=== PATIENT | male | born 1930 | race Caucasian/White ===

== ENCOUNTER 2017-11-19 21:32 | Inpatient (IN) | payer MEDICARE, BC ==
[~2017-11-19] VITALS: Ht 154.9 cm; Wt 52.6 kg
[~2017-11-19 21:32] MED LIST: ALEN70TA45; ASPI-1169 PO; CARB1TAB21; CARV12.5 PO; CLOP75TA15 PO
--- NOTE | 2017-11-19 21:32 | NUR ---
BB SELF; COUGH CONGESTION, "LOW URINE OUTPUT" VSS NAD A/OX4 ABLE TO MAKE NEEDS KNOWN. WILL CONTINUE TO MONITOR FOR ANY CHANGES DURING THE SHIFT.
[2017-11-19 22:10] LABS: HEMATOCRIT 39 % (39-51); LYMPHOCYTES # (AUTO) 0.6 /CMM (0.8-4.8); LYMPHOCYTES % (AUTO) 7.2 % (20.0-44.0); MEAN CORPUSCULAR HGB CONC 33 g/dl (31.0-36.0); MEAN CORPUSCULAR VOLUME 92 fL (80-96); MONOCYTES # (AUTO) 0.5 /CMM (0.1-1.30); MONOCYTES % (AUTO) 5.7 % (2.0-12.0); NEUTROPHILS # (AUTO) 7.7 /CMM (1.8-8.9); NEUTROPHILS % (AUTO) 86.1 % (43.0-81.0); PLATELET COUNT (AUTO) 320 /CMM (150-450); RDW COEFFICIENT OF VARIATION 13.2 (11.5-15.0); RED BLOOD CELL COUNT(AUTO) 4.26 MIL/uL (4.5-6.0)
[2017-11-19 22:22] LABS: CALCIUM, SERUM 8.6 mg/dL (8.5-10.1); CARBON DIOXIDE 26 mmol/L (21-32); CHLORIDE 98 mmol/L (98-107); CREATININE 0.8 mg/dL (0.6-1.3); GLUCOSE 159 mg/dL (74-106); POTASSIUM 4.1 mmol/L (3.5-5.1); SODIUM SERUM 130 mmol/L (136-145); UREA NITROGEN, BLOOD 19 mg/dL (7-18)
[2017-11-19 22:28] LABS: INR 1.1 (0.87-1.13); TROPONIN I 0.028 ng/mL (0.00-0.056)
[2017-11-19] MEDS ORDERED: ALBUTEROL FS 2.5 MG/0.5 ML VIAL.NEB NEB ONE (22:30)
[2017-11-19 22:33] LABS: ALANINE AMINOTRANSFERASE 55 U/L (12-78); ALBUMIN 3.2 g/dL (3.4-5.0); ALKALINE PHOSPHATASE 157 U/L (46-116); ASPARTATE AMINOTRANSFERASE 38 U/L (15-37); B-TYPE NATRIURETIC PEPTIDE 7335 PG/ML (0-125); BILIRUBIN,DIRECT 0.1 mg/dL (0.0-0.2); BILIRUBIN,TOTAL 0.5 mg/dL (0.2-1.0); TOTAL PROTEIN, SERUM 7.7 g/dL (6.4-8.2)
[2017-11-19] MEDS ORDERED: ALBUTEROL FS 2.5 MG/0.5 ML VIAL.NEB ONE (22:36)
[2017-11-19] MEDS ORDERED: METO50TA16 PO (22:47)
[2017-11-19] MEDS ORDERED: DIGO125T PO (22:47)
[2017-11-19] MEDS ORDERED: ATOR40TA PO ×2 (22:47→22:52)
[2017-11-19] MEDS ORDERED: LIDOCAINE 2% JEL UROJET 10 ML MM ONE ×2 (22:57→23:00)
--- NOTE | 2017-11-19 23:30 | NUR ---
ATTEMPTED 2 CATHETER INSERTIONS WITH NO SUCCESS. BLADDER SCANNER SHOWED 96CC OF URINE. ER MD MATIAS MADE AWARE
[2017-11-20 00:30] VITALS: BP 151/97
[2017-11-20] MEDS ORDERED: MAG HYDROX/AL HYDROX/SIMETH 30 ML UDC PO PRN (00:30)
[2017-11-20] MEDS ORDERED: Z GUARD REMEDY 2 OZ OINT TP PRN (00:30)
[2017-11-20] MEDS ORDERED: ACETAMINOPHEN 325 MG TABLET PO PRN (00:30)
[2017-11-20] MEDS ORDERED: HYDROCODONE/APAP 5/325MG 1 EACH TABLET PO PRN (00:30)
[2017-11-20] MEDS ORDERED: ZOLPIDEM TARTRATE 5 MG TABLET PO PRN (00:30)
[2017-11-20] MEDS ORDERED: ONDANSETRON HCL/PF 4 MG/2 ML VIAL IVP PRN (00:30)
--- NOTE | 2017-11-20 01:00 | NUR ---
MARINE DIESEL TECHNICIAN NOTE: RECEIVED PATIENT FROM ER, NO ACUTE DISTRESS NOTED. BREATHING EVEN AND UNLABORED, NO SOB NOTED AT THIS TIME. IV TO RAC IN PLACE. ORIENTED PATIENT TO ROOM AND USE OF CALL LIGHT. TELE READING AFIN 90. PATIENT NOTED WITH AN EPISODE OF VFIB, HR 120 FOR ABOUT 10 SEC PER PROPERTY CUSTODIAN. NURSE IN ROOM WITH PATIENT AT THE TIME AND NO ACUTE DISTRESS NOTED. TELE READING RESUMED BACK TO AFIB. BED LOCKED AND IN LOWEST POSITION, CALL LIGHT IN REACH. WILL CONTINUE TO MONITOR.
[2017-11-20] MEDS: methylPREDNISolone SOD SUCC 40 MG/ML VIAL IV SCH ×3 (01:18→13:34)
[2017-11-20] MEDS: IPRATROPIUM NEB FS 0.5 MG/2.5 ML AMPUL.NEB NEB SCH ×6 (03:22→23:18)
[2017-11-20] MEDS: ALBUTEROL FS 2.5 MG/0.5 ML VIAL.NEB NEB SCH ×6 (03:22→23:18)
[2017-11-20 04:00] VITALS: BP 114/76
--- NOTE | 2017-11-20 04:00 | NUR ---
SURVEY DATA TECHNICIAN NOTE: PATIENT NOTED WITH HEMATURIA. WHEN IN ER THEY TRIED TO STRAIGHT CATH AND WERE UNSUCCESSFUL. PATIENT HAS HISTORY OF PROSTATE CANCER. WILL CONTINUE TO MONITOR.
--- NOTE | 2017-11-20 06:15 | NUR ---
SPEECH LANGUAGE PATHOLOGIST NOTE: PATIENT RESTING IN BED, NO ACUTE DISTRESS NOTED. BREATHING EVEN AND UNLABORED, NO SOB NOTED AT THIS TIME. IV TO RAC IN PLACE. TELE READING AFIB 80. BED LOCKED AND IN LOWEST POSITION, CALL LIGHT IN REACH. WILL ENDORSE TO DAY NURSE TO CONTINUE WITH PLAN OF CARE.
[2017-11-20 08:00] VITALS: BP 121/80
--- NOTE | 2017-11-20 08:00 | NUR ---
GRAIN COMBINER NOTES PATIENT IN BED RESTING NO SOB OR ACUTE DISTRESS NOTED. PATIENT ALERT, ORIENTED X3 FORGETFUL. PERIPHERAL IV INTACT PATENT. BED IN LOW LOCKED POSITION, CALL WITHIN REACH. WILL CONTINUE TO MONITOR.
[2017-11-20 08:24] LABS: ABG BASE EXCESS -2.9 mmol/L; ABG OXYGEN SATURATION 94.9 % (92.0-98.5); ABG PCO2 23.5 mmHg (35.0-45.0); ABG PO2 73.2 mmHg (75.0-100.0); AaDO2 98.7 mmHg; COHb 0.2 % (0.5-1.5); MetHb 0.5 % (0.0-1.5); O2Hb 94.2 % (94.0-97.0); SITE, ABG Right Radial; VENT MODE, BG 2 lpm cannula
[2017-11-20] MEDS: IV NS 0.9% 1,000 ML IV PRN (09:23)
[2017-11-20] MEDS: CLOPIDOGREL BISULFATE 75 MG TABLET PO SCH (09:24)
[2017-11-20] MEDS: METOPROLOL TARTRATE 50 MG TABLET PO SCH ×2 (09:24→21:12)
[2017-11-20] MEDS: ASPIRIN 81 MG TAB.CHEW PO SCH (09:24)
[2017-11-20] MEDS: CARBIDOPA/LEVODOPA 25/100 MG 1 UDTAB PO SCH (09:24)
[2017-11-20] MEDS: CARVEDILOL 12.5 MG TABLET PO SCH ×2 (09:25→21:12)
--- NOTE | 2017-11-20 11:00 | NUR ---
MS RN NOTES PATIENT SEEN AND EVALUATED BY RICKI PEGUERO ORDERS NOTED AND CARRIED OUT.
[2017-11-20 11:38] LABS: HEMATOCRIT 36 % (39-51); LYMPHOCYTES # (AUTO) 0.3 /CMM (0.8-4.8); LYMPHOCYTES % (AUTO) 3.2 % (20.0-44.0); MEAN CORPUSCULAR HGB CONC 33 g/dl (31.0-36.0); MEAN CORPUSCULAR VOLUME 92 fL (80-96); MONOCYTES # (AUTO) 0.1 /CMM (0.1-1.30); MONOCYTES % (AUTO) 0.6 % (2.0-12.0); NEUTROPHILS # (AUTO) 8.9 /CMM (1.8-8.9); NEUTROPHILS % (AUTO) 96.2 % (43.0-81.0); PLATELET COUNT (AUTO) 278 /CMM (150-450); RDW COEFFICIENT OF VARIATION 13.3 (11.5-15.0); RED BLOOD CELL COUNT(AUTO) 3.93 MIL/uL (4.5-6.0); WHITE BLOOD COUNT (AUTO) 9.3 K/uL (4.3-11.0)
[2017-11-20 11:45] LABS: CALCIUM, SERUM 8.3 mg/dL (8.5-10.1); CARBON DIOXIDE 22 mmol/L (21-32); CHLORIDE 100 mmol/L (98-107); GLUCOSE 237 mg/dL (74-106); POTASSIUM 4.5 mmol/L (3.5-5.1); SODIUM SERUM 132 mmol/L (136-145); UREA NITROGEN, BLOOD 18 mg/dL (7-18)
[2017-11-20] MEDS: DIGOXIN 0.125 MG TABLET PO SCH (13:35)
[2017-11-20] MEDS ORDERED: LEVOFLOXACIN (500MG) 500 MG TABLET PO ONE (15:00)
[2017-11-20 16:00] VITALS: BP 118/73
--- NOTE | 2017-11-20 17:39 | NUR ---
patient lives locally with daughter who is the primary caregiver. Patient ambulates with cane around household and walker when out in the community. DME available: cane & walker. Has good family support. Current plan is to dc back home, daughter will provide ride. Addendum: 11/20/17 at 1740 by GORDON CHAN RN Amended: Links added.
--- NOTE | 2017-11-20 19:00 | NUR ---
MS RN NOTES PATIENT IN BED RESTING NO SOB OR ACUTE DISTRESS NOTED. ALL DUE MEDICATIONS ADMINISTERED. ALL NEEDS MET. PERIPHERAL IV INTACT PATENT ON LEFT FOREARM. BED IN LOW LOCKED POSITION. CALL LIGHT WITHIN REACH. WILL ENDORSE CARE TO PM SHIFT.
--- NOTE | 2017-11-20 19:20 | NUR ---
MS/RN OPENING NOTES PT RECEIVED AWAKE, SEMI FOWLERS POSITION. ON 2L O2 VIA NC, BREATHING EVEN AND UNLABORED. NO SOB OR S/S OF RESPIRATORY DISTRESS NOTED AT THIS TIME. 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 IV TO LFA PATENT AND INTACT RUNNING IVF ORDERED. BED IN LOW/LOCKED POSITION WITH CALL LIGHT IN REACH. SIDE RAILS UPX3 AND BED ALARM ON FOR SAFETY. WALKER AT BEDSIDE. WILL CONTINUE TO MONITOR
[2017-11-20 20:00] VITALS: BP 132/79
[2017-11-20] MEDS ORDERED: ATORVASTATIN 40 MG TABLET PO SCH (22:00)
[2017-11-20] MEDS ORDERED: DIGOXIN 0.125 MG TABLET PO SCH (22:00)
[2017-11-21] MEDS: ALBUTEROL FS 2.5 MG/0.5 ML VIAL.NEB NEB SCH ×6 (03:45→23:13)
[2017-11-21] MEDS: IPRATROPIUM NEB FS 0.5 MG/2.5 ML AMPUL.NEB NEB SCH ×6 (03:45→23:13)
[2017-11-21] MEDS: IV NS 0.9% 1,000 ML IV PRN ×2 (05:20→17:57)
[2017-11-21 06:31] LABS: HEMATOCRIT 35 % (39-51); HEMOGLOBIN 11.8 g/dL (13.5-17.5); LYMPHOCYTES # (AUTO) 0.6 /CMM (0.8-4.8); LYMPHOCYTES % (AUTO) 3.9 % (20.0-44.0); MEAN CORPUSCULAR HGB CONC 34 g/dl (31.0-36.0); MEAN CORPUSCULAR VOLUME 92 fL (80-96); MONOCYTES # (AUTO) 0.8 /CMM (0.1-1.30); NEUTROPHILS # (AUTO) 14.1 /CMM (1.8-8.9); NEUTROPHILS % (AUTO) 91.1 % (43.0-81.0); PLATELET COUNT (AUTO) 312 /CMM (150-450); RDW COEFFICIENT OF VARIATION 13.1 (11.5-15.0); WHITE BLOOD COUNT (AUTO) 15.5 K/uL (4.3-11.0)
[2017-11-21 06:48] LABS: ALANINE AMINOTRANSFERASE 51 U/L (12-78); ALBUMIN 2.9 g/dL (3.4-5.0); ALKALINE PHOSPHATASE 110 U/L (46-116); ASPARTATE AMINOTRANSFERASE 28 U/L (15-37); BILIRUBIN,TOTAL 0.7 mg/dL (0.2-1.0); CALCIUM, SERUM 8.3 mg/dL (8.5-10.1); CARBON DIOXIDE 23 mmol/L (21-32); CHLORIDE 99 mmol/L (98-107); CREATININE 0.9 mg/dL (0.6-1.3); GLUCOSE 135 mg/dL (74-106); PHOSPHORUS 3.4 mg/dL (2.5-4.9); POTASSIUM 4.4 mmol/L (3.5-5.1); SODIUM SERUM 132 mmol/L (136-145); TOTAL PROTEIN, SERUM 6.9 g/dL (6.4-8.2); TROPONIN I 0.029 ng/mL (0.00-0.056); UREA NITROGEN, BLOOD 25 mg/dL (7-18)
--- NOTE | 2017-11-21 06:50 | NUR ---
MS/RN CLOSING NOTES PT RESTING COMFORTABLY IN BED. FORGETFUL AND HARD OF HEARING. ON/OFF 2L O2 VIA NC, BREATHING EVEN AND UNLABORED. SOB ON EXERTION. REORIENTED PRN, EDUCATED ABOUT OXYGEN USE. IV TO LEFT FA PATENT AND INTACT RUNNING IVF ORDERED. KEPT PT COMFORTABLE DURING SHIFT. ALL NEEDS MET. BED REMAINS IN LOW/LOCKED POSITION WITH CALL LIGHT IN REACH. BED ALARM ON FOR SAFETY AND BED RAILS UPX2. WILL ENDORSE TO DAY SHIFT RN CHARISSA.
--- NOTE | 2017-11-21 07:15 | NUR ---
MS RN OPENING NOTE RECEIVED BEDSIDE SBAR REPORT ON THE PATIENT. PATIENT IS CONFUSED AND FORGETFUL. PATIENT IS AWAKE AND RESPONSIVE IN BED. HARD OF HEARING. BED IS LOCKED, IN LOWEST POSITION, SIDE RAILS UP X3, BED ALARM IS ON. CALL LIGHT WITHIN REACH. [id number] THE PATIENT TO USE THE CALL LIGHT TO CALL FOR ASSISTANCE. ALL NEEDS ARE MET. DENIES PAIN/DISCOMFORT AT THIS TIME. SPO2 92 % ON 2L. WILL CONTINUE TO ASSESS/MONITOR THROUGHOUT THE SHIFT.
[2017-11-21 07:37] LABS: CHOLESTEROL 111 mg/dL (<200); HDL CHOLESTEROL 30 mg/dL (40-60); LDL 71 mg/dL (0-99); TRIGLYCERIDES 91 mg/dL (30-150)
[2017-11-21 08:00] VITALS: BP_SYST 153; BP_SYST 160; BP_DIAS 100; BP_DIAS 96
[2017-11-21] MEDS: CARVEDILOL 12.5 MG TABLET PO SCH ×2 (08:00→21:24)
[2017-11-21] MEDS: ASPIRIN 81 MG TAB.CHEW PO SCH (08:00)
[2017-11-21] MEDS: METOPROLOL TARTRATE 50 MG TABLET PO SCH ×2 (08:00→21:24)
--- NOTE | 2017-11-21 08:02 | NUR ---
PATIENT FORGETS OWN LIMITATIONS AND GETS OUT OF BED TO URINATE WITHOUT CALLING THE NURSE. CHARGE NURSE ANDREINA NOTIFIED. ORDER OBTAINED FROM Ever PEGUERO NP FOR 1:1SITTER.
[2017-11-21] MEDS: CARBIDOPA/LEVODOPA 25/100 MG 1 UDTAB PO SCH (08:07)
[2017-11-21] MEDS: methylPREDNISolone SOD SUCC 40 MG/ML VIAL IV SCH (08:07)
[2017-11-21] MEDS: CLOPIDOGREL BISULFATE 75 MG TABLET PO SCH (08:08)
[2017-11-21] MEDS: DIGOXIN 0.125 MG TABLET PO SCH (13:39)
[2017-11-21] MEDS: LEVOFLOXACIN (250MG) 250 MG TABLET PO SCH (15:37)
[2017-11-21 16:00] VITALS: BP 158/75
--- NOTE | 2017-11-21 17:21 | NUR ---
patient presents with elevated bp of 160/75. Freddy Méndez informed. Received telephone order for Hydralazine PO 10 mg one time now and decrease IV fluids to 50ml/hr. Read back and verified. Will follow orders as received.
[2017-11-21] MEDS ORDERED: hydrALAZINE HCL 10 MG TABLET PO ONE (17:30)
--- NOTE | 2017-11-21 18:50 | NUR ---
MS RN CLOSING NOTE PATIENT IS AWAKE AND ALERT, READING A BOOK IN THE BED. CONFUSED AND FORGETFUL. SITTER AT THE BEDSIDE. BED IS LOCKED, IN LOWEST POSITION, SIDE RAILS UP X3, BED ALARM IS ON. CALL LIGHT WITHIN REACH. EDUCATED THE PATIENT TO USE THE CALL LIGHT TO CALL FOR ASSISTANCE. ALL NEEDS ARE MET. DENIES PAIN/DISCOMFORT AT THIS TIME. SPO2 93 % ON 2L. ALL NEEDS ARE MET. NURSING CARE RENDERED. ALL DUE MEDICATIONS ADMINISTERED. WILL ENDORSE TO THE OYSTER OPENER NURSE FOR CHARISSA.
--- NOTE | 2017-11-21 19:20 | NUR ---
MS RN OPENING NOTES RECEIVED PT SITTING UPRIGHT IN BED WITH SITTER AT BEDSIDE. AWAKE AND RESPONSIVE. AFEBRILE, RESPIRATIONS ARE EVEN AND UNLABORED. NOT IN ANY ACUTE DISTRESS NOTED. PT DENIES ANY PAIN OR DISCOMFORT, N/V, SOB. IV SITE INTACT, NO INFILTRATION NOTED. DRESSING KEPT CLEAN AND DRY. SAFETY MEASURES ARE IN PLACE. WILL CONTINUE TO MONITOR THROUGHOUT SHIFT FOR CONTINUITY OF CARE.
--- NOTE | 2017-11-21 19:40 | NUR ---
RN INITIAL NOTES: RECEIVED REPORT FROM JENI KEMP, PT IN BED, AWAKE, A/O X2-3 HARD OF HEARING, BETTER TO USE PEN AND PAPER TO COMMUNICATE PT REALLY HAD DIFFICULTY HEARING. DENIES ANY PAIN OR DISCOMFORT AT THIS TIME, ON 2L NC, SPO2 90%-92%. IV ACCESS NOTED TO BE BLEEDING AND INFILTRATED, REMOVED, AND APPLIED PRESSURED DRESSING. NEW IV ACCESS REINSERTED ON RIGHT HAND G24, PT REALLY HARD STICK, VEIN KEPT BLOWING, CONNECTED BACK TO NS AT 50ML/HR. SITTER AT BED SIDE. URINAL WITHIN REACH. SAFETY PRECAUTIONS FOR FALL INITIATED, CALL LIGHT IN REACH, WILL CONTINUE MONITORING PT Addendum: 11/22/17 at 7277 by JORDAN LUNDBERG RN DISREGARD ABOVE DOCUMENTATION: WRONG ENTRY OF DATE
[2017-11-21 20:00] VITALS: BP 148/93
--- NOTE | 2017-11-21 23:16 | NUR ---
HHN TREATMENT PUT ON HOLD PER RN WHILE PATIENT IS ASLEEP. NO DISTRESS/SOB NOTED. Addendum: 11/21/17 at 2317 by BERTRAND VELAZQUEZ RT Amended: Links added.
[2017-11-22] MEDS: ALBUTEROL FS 2.5 MG/0.5 ML VIAL.NEB NEB SCH ×6 (03:30→23:36)
[2017-11-22] MEDS: IPRATROPIUM NEB FS 0.5 MG/2.5 ML AMPUL.NEB NEB SCH ×6 (03:30→23:36)
--- NOTE | 2017-11-22 03:49 | NUR ---
HHN TREATMENT PUT ON HOLD PER RN WHILE PATIENT IS ASLEEP. NO DISTRESS/SOB NOTED. Addendum: 11/22/17 at 0349 by BERTRAND VELAZQUEZ RT Amended: Links added.
--- NOTE | 2017-11-22 06:50 | NUR ---
MS RN NOTES NEW PERIPHERAL INSERTED TO RIGHT WRIST G 22. DRESSING KEPT CLEAN AND DRY. TOLERATED PROCEDURE WELL.
--- NOTE | 2017-11-22 06:58 | NUR ---
MS RN CLOSING NOTES ALL DUE MEDS GIVEN, NEEDS MET AND RENDERED. AWAKE AND RESPONSIVE. AFEBRILE, RESPIRATIONS ARE EVEN AND UNLABORED, NOT IN ANY ACUTE DISTRESS NOTED. DENIES ANY SOB, CHEST PAIN, N/V. IV SITE INTACT, DRESSING KEPT CLEAN AND DRY. SAFETY MEASURES ARE IN PLACE. WILL ENDORSE TO NEXT SHIFT FOR CONTINUITY OF CARE.
--- NOTE | 2017-11-22 08:00 | NUR ---
RN NOTES RECEIVED PATIENT IN THE BED RESTING. PATIENT AROUSE WHEN CALLED NAME OR TOUCHED. PATIENT HAS NO RESPIRATORY DISTRESS. PATIENT ON ALUTIIQ. ON O2 2L NC, NO SOB, NO ACUTE RESPIRATORY DISTRESS. IV ON LEFT FOREARM NS AT 50 ML/HR INTACT. SCHEDULED MEDICATION ADMINISTERED, V/S STABLE. 1:1 SITTER NEX TO THE BED FOR SAFETY. NEEDS ATTENDED AND ANTICIPATED. CALL LIGHT WITHIN TO REACH. SAFETY PRECAUTION MAINTAINED ALL THE TIME.
[2017-11-22] MEDS: CARBIDOPA/LEVODOPA 25/100 MG 1 UDTAB PO SCH (08:49)
[2017-11-22] MEDS: METOPROLOL TARTRATE 50 MG TABLET PO SCH ×2 (08:50→22:03)
[2017-11-22] MEDS: methylPREDNISolone SOD SUCC 40 MG/ML VIAL IV SCH (08:50)
[2017-11-22] MEDS: CLOPIDOGREL BISULFATE 75 MG TABLET PO SCH (08:50)
[2017-11-22] MEDS: ASPIRIN 81 MG TAB.CHEW PO SCH (08:50)
[2017-11-22] MEDS: CARVEDILOL 12.5 MG TABLET PO SCH ×2 (09:07→20:52)
[2017-11-22 11:10] LABS: EOSINOPHILS % (AUTO) 0.2 % (0.0-6.0); HEMATOCRIT 35 % (39-51); HEMOGLOBIN 11.6 g/dL (13.5-17.5); LYMPHOCYTES # (AUTO) 0.4 /CMM (0.8-4.8); LYMPHOCYTES % (AUTO) 4.1 % (20.0-44.0); MEAN CORPUSCULAR HGB CONC 33 g/dl (31.0-36.0); MEAN CORPUSCULAR VOLUME 92 fL (80-96); MONOCYTES # (AUTO) 0.6 /CMM (0.1-1.30); MONOCYTES % (AUTO) 5.6 % (2.0-12.0); NEUTROPHILS # (AUTO) 9.8 /CMM (1.8-8.9); NEUTROPHILS % (AUTO) 90.1 % (43.0-81.0); PLATELET COUNT (AUTO) 323 /CMM (150-450); RDW COEFFICIENT OF VARIATION 13.8 (11.5-15.0); WHITE BLOOD COUNT (AUTO) 10.9 K/uL (4.3-11.0)
[2017-11-22 11:16] LABS: CALCIUM, SERUM 8.3 mg/dL (8.5-10.1); CARBON DIOXIDE 23 mmol/L (21-32); CHLORIDE 101 mmol/L (98-107); CREATININE 0.9 mg/dL (0.6-1.3); GLUCOSE 109 mg/dL (74-106); POTASSIUM 4.5 mmol/L (3.5-5.1); SODIUM SERUM 132 mmol/L (136-145); UREA NITROGEN, BLOOD 30 mg/dL (7-18)
--- NOTE | 2017-11-22 11:20 | NUR ---
carlita notes PATIENT GET DISATURATED 78/ TO 81 AFTER ROVED OXYGEN. APPLIED O2 BACK. RICKI ROMERO NOTIFIED. ORDER TAKEN AND CARRIED OUT. Addendum: 11/22/17 at 1217 by DENNY CLEEVLAND RN RICKI RUBI NOTIFIED.
--- NOTE | 2017-11-22 12:10 | NUR ---
RN NOTES PATIENT GET CHEST X-RAY AT THIS TIME, ALSO SEEN PHENOLOGIST DR ELLIS. PATIENT STABLE NO SOB, NO ACUTE RESPIRATORY DISTRESS AT THIS TIME. DAUGHTER NEXT TO THE BED. O2 -95 ON 2LNC, CALL LIGHT WITHIN TO THE PATIENT. 1:1 SITTER NEXT TO THE BED FOR SAFETY. CONTINUED MONITORING.
[2017-11-22] MEDS: DIGOXIN 0.125 MG TABLET PO SCH (13:00)
--- NOTE | 2017-11-22 14:06 | NUR ---
RN NOTES HELD DIGOXIN AT THIS TIME BECAUSE OF LOW PULSE 50 MINS. CONTINUED MONITORING.
[2017-11-22] MEDS: LEVOFLOXACIN (250MG) 250 MG TABLET PO SCH (15:58)
[2017-11-22 16:00] VITALS: BP 145/71
--- NOTE | 2017-11-22 18:30 | NUR ---
RN NOTES PATIENT ON O2 2L NC, NO SOB, NO RESPIRATORY DISTRESS, SCHEDULED MEDICATION ADMINISTERED, V/S STABLE, PATIENT USING URINAL. CALL LIGHT WITHIN TO REACH. 1:1 SITTER NEXT TO THE BED FOR SAFETY. CALL LIGHT WITHIN TO REACH. ENDORSED ONCOMING NURSE FOR CHARISSA.
--- NOTE | 2017-11-22 19:40 | NUR ---
RN INITIAL NOTES: RECEIVED REPORT FROM JENI KEMP, PT IN BED, AWAKE, A/O X2-3 HARD OF HEARING, BETTER TO USE PEN AND PAPER TO COMMUNICATE PT REALLY HAD DIFFICULTY HEARING. DENIES ANY PAIN OR DISCOMFORT AT THIS TIME, ON 2L NC, SPO2 90%-92%. IV ACCESS NOTED TO BE BLEEDING AND INFILTRATED, REMOVED, AND APPLIED PRESSURED DRESSING. NEW IV ACCESS REINSERTED ON RIGHT HAND G24, PT REALLY HARD STICK, VEIN KEPT BLOWING, CONNECTED BACK TO NS AT 50ML/HR. SITTER AT BED SIDE. URINAL WITHIN REACH. SAFETY PRECAUTIONS FOR FALL INITIATED, CALL LIGHT IN REACH, WILL CONTINUE MONITORING PT
[2017-11-22 20:00] VITALS: BP 150/76
--- NOTE | 2017-11-22 21:30 | NUR ---
RN NOTES: OFFERED MILK, AND SNACK, CONSUMED 100%.
[2017-11-22 22:03] VITALS: BP 132/73
--- NOTE | 2017-11-22 22:49 | NUR ---
RN INITIAL NOTES: RECEIVED REPORT FROM JENI KEMP, PT IN BED, AWAKE, A/O X2-3 HARD OF HEARING, BETTER TO USE PEN AND PAPER TO COMMUNICATE PT REALLY HAD DIFFICULTY HEARING. DENIES ANY PAIN OR DISCOMFORT AT THIS TIME, ON 2L NC, SPO2 90%-92%. IV ACCESS NOTED TO BE BLEEDING AND INFILTRATED, REMOVED, AND APPLIED PRESSURED DRESSING. NEW IV ACCESS REINSERTED ON RIGHT HAND G24, PT REALLY HARD STICK, VEIN KEPT BLOWING, CONNECTED BACK TO NS AT 50ML/HR. SITTER AT BED SIDE. URINAL WITHIN REACH. SAFETY PRECAUTIONS FOR FALL INITIATED, CALL LIGHT IN REACH, WILL CONTINUE MONITORING PT Addendum: 11/22/17 at 2250 by JORDAN LUNDBERG RN DISREGARD ABOVE DOCUMENTATION, WRONG TIME:
--- NOTE | 2017-11-23 02:34 | NUR ---
RN NOTES: PT PULLED OUT IV ACCESS, REINSERTED A NEW ONE, CONNECTED BACK TO IVF ORDERED
[2017-11-23] MEDS: IPRATROPIUM NEB FS 0.5 MG/2.5 ML AMPUL.NEB NEB SCH ×3 (03:06→11:30)
[2017-11-23] MEDS: ALBUTEROL FS 2.5 MG/0.5 ML VIAL.NEB NEB SCH ×3 (03:06→11:30)
[2017-11-23] MEDS: IV NS 0.9% 1,000 ML IV PRN (04:43)
--- NOTE | 2017-11-23 06:42 | NUR ---
RN CLOSING NOTES: PT IN BED, AWAKE, REMAINS ON 2L VIA NC, IV ACCESS REMAINS PATENT AND FLUSHING WELL, INFUSING WITH NS AT 50ML/HR. PT REMAINS A/O X2-3. NO SOB NOTED. VS REMAINS STABLE, NEEDS ATTENDED. FOR POSSIBLE DC TODAY, EXIT CARE COMPLETED, SAFETY PRECAUTIONS FOR FALL REMAINS ENGAGED, CALL LIGHT IN REACH. WILL ENDORSE TO DAY RN FOR CHARISSA.
--- NOTE | 2017-11-23 08:00 | NUR ---
RN NOTES RECEIVED PATIENT IN THE ROOM, A/O X2/3, PATIENT HAS A COLD SPRINGS. PATIENT ON O2 2LNC, NO ACUTE RESPIRATORY DISTRESS, NO SOB. V/S STABLE. PATIENT MED COMPLIANT, NO C/O PAIN. NEEDS ATTENDED AND ANTICIPATED. 1:1 SITTER NEXT TO THE BED FOR SAFETY. CALL LIGHT WITHIN TO REACH, CONTINUED MONITORING.
[2017-11-23 08:03] VITALS: BP 133/73
[2017-11-23 09:01] LABS: ABG OXYGEN SATURATION 91.8 % (92.0-98.5); ABG PCO2 27.3 mmHg (35.0-45.0); ABG PH 7.487 (7.350-7.450); ABG PO2 63.2 mmHg (75.0-100.0); AaDO2 118.6 mmHg; COHb 0.3 % (0.5-1.5); MetHb 0.5 % (0.0-1.5); O2Hb 91.1 % (94.0-97.0); SITE, ABG Left Radial; VENT MODE, BG 3L NC
[2017-11-23] MEDS: CLOPIDOGREL BISULFATE 75 MG TABLET PO SCH (09:06)
[2017-11-23] MEDS: methylPREDNISolone SOD SUCC 40 MG/ML VIAL IV SCH (09:06)
[2017-11-23 09:07] VITALS: BP 133/73
[2017-11-23] MEDS: ASPIRIN 81 MG TAB.CHEW PO SCH (09:07)
[2017-11-23] MEDS: METOPROLOL TARTRATE 50 MG TABLET PO SCH (09:07)
[2017-11-23] MEDS: CARBIDOPA/LEVODOPA 25/100 MG 1 UDTAB PO SCH (09:07)
[2017-11-23] MEDS: CARVEDILOL 12.5 MG TABLET PO SCH (09:07)
[2017-11-23] MEDS ORDERED: PRED5TAB48 PO (10:00)
[2017-11-23] MEDS ORDERED: PRED20TA PO (10:00)
[2017-11-23] MEDS ORDERED: LEVO250T2 PO ×2 (10:00→10:05)
--- NOTE | 2017-11-23 11:00 | NUR ---
RN NOTES PATIENT GOING TO D/C HOME WITH HOME HEALTH. CONTINUED MONITORING.
[2017-11-23] MEDS: DIGOXIN 0.125 MG TABLET PO SCH (13:00)
[2017-11-23] MEDS: LEVOFLOXACIN (250MG) 250 MG TABLET PO SCH (15:49)
--- NOTE | 2017-11-23 16:00 | NUR ---
DISCHARGE NOTES PATIENT DISCHARGE AT THIS TIME GOING HOME WITH HOME HEALTH. PATIENT ON O2- 3L NC, NO SOB AT THIS TIME, NO RESPIRATORY DISTRESS. V/S STABLE, MED COMPLIANT. PATIENT DENIED PAIN AT THIS TIME. MED RECONCILIATION AND DISCHARGE ORDER REVIEWED AND EXPLAINED TO PATIENT AND DAUGHTER. DAUGHTER VERBALIZED UNDERSTANDING. PATIENT WILL FOLLOW PRIMARY PAY STATION ATTENDANT, AND PROGRAM WRITER Dr JOAQUIN PHONE #[phone]. PATIENT SIGN PAPERWORK. PRESCRIPTION GIVEN TO THE PATIENT. BELONGING WITH THE PATIENT. ESCORTED PATIENT TO THE LOBBY FOR SAFETY. PATIENT MACHINE FIXER BY DAUGHTER NAME NEIL PHONE # [phone].
== END 2017-11-23 15:50 | disposition home health service (06) | DRG 189 ==
LOC: ER 21:39 → TELE 23:51 → MED 11-20 08:46
PROVIDERS: ADMIT Nurse Practitioner Acute Care; ATTEND Nurse Practitioner Acute Care
DX: J96.21 Acute and chronic respiratory failure with hypoxia (principal); G93.49 Other encephalopathy; E46 Unspecified protein-calorie malnutrition; I27.20 Pulmonary hypertension, unspecified; G20 Parkinson's disease; I48.2 Chronic atrial fibrillation; J84.10 Pulmonary fibrosis, unspecified; E87.1 Hypo-osmolality and hyponatremia; J43.9 Emphysema, unspecified; J20.9 Acute bronchitis, unspecified; E78.5 Hyperlipidemia, unspecified; I25.10 Atherosclerotic heart disease of native coronary artery without angina pectoris; Z87.891 Personal history of nicotine dependence; G30.9 Alzheimer's disease, unspecified; F02.80 Dementia in other diseases classified elsewhere, unspecified severity, without behavioral disturbance, psychotic disturbance, mood disturbance, and anxiety; Z85.038 Personal history of other malignant neoplasm of large intestine; D72.828 Other elevated white blood cell count; I10 Essential (primary) hypertension; Z68.21 Body mass index [BMI] 21.0-21.9, adult; Z88.0 Allergy status to penicillin; Z88.1 Allergy status to other antibiotic agents; T38.0X5A Adverse effect of glucocorticoids and synthetic analogues, initial encounter; Y92.89 Other specified places as the place of occurrence of the external cause; Z98.890 Other specified postprocedural states
CPT/HCPCS: 36415; 36600; 71045-TC; 71250-TC; 80048-TC; 80053-TC; 80061-TC; 80076-TC; 82962-TC; 83735-TC; 83880; 84100-TC; 84484-TC; 85025-TC; 85730-TC; 87081-TC; 92521; 92526; 93307-TC; 94799-TC; 97530-TC; 97535-TC; A4606; J2920; J3490; J7030; Z7610

== ENCOUNTER 2018-07-16 12:39 | Inpatient (IN) | payer BC, MEDICARE, OTHER ==
[~2018-07-16] VITALS: Ht 167.6 cm; Wt 45.2 kg
[~2018-07-16 12:39] MED LIST changes: -ALEN70TA45; +ALEN70TA6; +ATOR40TA PO; +DIGO125T PO; +LEVO250T2 PO; +METO50TA16 PO; +PRED20TA PO; +PRED5TAB48 PO
--- NOTE | 2018-07-16 12:54 | NUR ---
BIB FAMILY W C/O SOB "Has had a cold since June been having episodes of SOB worse last night.Went to Bedroom-I heard a thump,found him trying to get up floor." TO ER BED 7, HOOKED TO MONITOR, AWAITING MD SEQUEIRA
[2018-07-16] MEDS ORDERED: ACETAMINOPHEN ES 500 MG TABLET PO ONE (13:30)
--- NOTE | 2018-07-16 13:35 | NUR ---
DR CANCINO AT BEDSIDE
[2018-07-16] MEDS ORDERED: ACETAMINOPHEN ES 500 MG TABLET ONE (13:41)
--- NOTE | 2018-07-16 13:47 | NUR ---
CAR DUMPER OPERATOR HELPER AT BEDSIDE
[2018-07-16 13:49] LABS: BASOPHILS % (AUTO) 0.3 % (0.0-2.0); EOSINOPHILS % (AUTO) 0.1 % (0.0-6.0); HEMATOCRIT 43 % (39-51); LYMPHOCYTES # (AUTO) 0.5 /CMM (0.8-4.8); MEAN CORPUSCULAR HGB CONC 33 g/dl (31.0-36.0); MEAN CORPUSCULAR VOLUME 94 fL (80-96); MONOCYTES # (AUTO) 0.5 /CMM (0.1-1.30); MONOCYTES % (AUTO) 3.5 % (2.0-12.0); NEUTROPHILS # (AUTO) 14.1 /CMM (1.8-8.9); NEUTROPHILS % (AUTO) 93.1 % (43.0-81.0); PLATELET COUNT (AUTO) 409 /CMM (150-450); RED BLOOD CELL COUNT(AUTO) 4.55 MIL/uL (4.5-6.0); WHITE BLOOD COUNT (AUTO) 15.2 K/uL (4.3-11.0)
[2018-07-16 13:57] LABS: CALCIUM, SERUM 8.3 mg/dL (8.5-10.1); CARBON DIOXIDE 27 mmol/L (21-32); CHLORIDE 98 mmol/L (98-107); CREATININE 0.9 mg/dL (0.6-1.3); GLUCOSE 184 mg/dL (74-106); POTASSIUM 4.4 mmol/L (3.5-5.1); SODIUM SERUM 132 mmol/L (136-145); UREA NITROGEN, BLOOD 17 mg/dL (7-18)
[2018-07-16 14:09] LABS: ALANINE AMINOTRANSFERASE 44 U/L (12-78); ALBUMIN 2.6 g/dL (3.4-5.0); ALKALINE PHOSPHATASE 199 U/L (46-116); ASPARTATE AMINOTRANSFERASE 31 U/L (15-37); B-TYPE NATRIURETIC PEPTIDE 9958 PG/ML (0-125); BILIRUBIN,DIRECT 0.1 mg/dL (0.0-0.2); BILIRUBIN,TOTAL 0.5 mg/dL (0.2-1.0); TOTAL PROTEIN, SERUM 7.1 g/dL (6.4-8.2)
[2018-07-16] MEDS ORDERED: CHOL50004 PO (14:09)
[2018-07-16] MEDS ORDERED: ASPI-992 PO (14:09)
[2018-07-16] MEDS ORDERED: UMEC1BLS IH (14:09)
[2018-07-16] MEDS ORDERED: CLOT15CR63 TP (14:09)
--- NOTE | 2018-07-16 14:25 | NUR ---
URINE SAMPLE SENT TO LAB
[2018-07-16 14:28] LABS: APPEARANCE,URINE Cloudy (CLEAR); BILIRUBIN,URINE Negative (NEGATIVE); BLOOD, URINE Large Ery/uL (NEGATIVE); KETONES,URINE Trace (NEGATIVE); LEUKOCYTE ESTERASE ,URINE Negative (NEGATIVE); NITRITE, URINE Negative (NEGATIVE); PROTEIN,URINE 30 mg/dl (NEGATIVE); UGLUCOSE Negative (NEGATIVE); UROBILINOGEN,URINE 0.2 EU/dL (0.2)
[2018-07-16 14:29] LABS: COLOR,URINE Dark Yellow (YELLOW)
[2018-07-16 14:34] LABS: BACTERIA,URINE None seen /HPF (None Seen); RBC,URINE 81-100 /HPF (0-2); SQUAMOUS EPITHELIAL CELL,UR Few /HPF (None Seen); WBC,URINE 0-3 /HPF (0-3)
[2018-07-16] MEDS ORDERED: FUROSEMIDE 40 MG/4 ML VIAL IV ONE (15:30)
[2018-07-16] MEDS ORDERED: FUROSEMIDE 40 MG/4 ML VIAL ONE (16:03)
--- NOTE | 2018-07-16 16:35 | NUR ---
REPORT GIVEN TO PATRICE KEMP
[2018-07-16] MEDS ORDERED: ALBUTEROL FS 2.5 MG/3 ML VIAL.NEB NEB PRN (17:00)
[2018-07-16] MEDS ORDERED: IPRATROPIUM NEB FS 0.5 MG/2.5 ML AMPUL.NEB NEB PRN (17:00)
[2018-07-16] MEDS ORDERED: ZOLPIDEM TARTRATE 5 MG TABLET PO PRN (17:00)
[2018-07-16] MEDS ORDERED: Z GUARD REMEDY 2 OZ OINT TP PRN (17:00)
[2018-07-16] MEDS ORDERED: ACETAMINOPHEN 325 MG TABLET PO PRN (17:00)
[2018-07-16] MEDS ORDERED: ONDANSETRON HCL/PF 4 MG/2 ML VIAL IVP PRN (17:00)
[2018-07-16] MEDS ORDERED: MAG HYDROX/AL HYDROX/SIMETH 30 ML UDC PO PRN (17:00)
[2018-07-16] MEDS ORDERED: HYDROCODONE/APAP 5/325MG 1 EACH TABLET PO PRN (17:00)
[2018-07-16] MEDS ORDERED: MAGNESIUM HYDROXIDE 30 ML UDC PO PRN (17:00)
[2018-07-16 17:30] VITALS: BP 123/70
--- NOTE | 2018-07-16 19:00 | NUR ---
RN NOTE RECEIVED PT ON BED, AT 1730 WITH DAUGHTER AT BEDSIDE, PT CO PAIN IN R SIDE OF THE CHEST, HEARD OF HEARING, AFIB ON TELEMETRY, SOME ABRASION ON R ARM, PT WANTS TO URINATE CONSTANTLY, BUT URINE OUTPUT MINIMAL, MD AWARE. PECK CATHTER INSERTION ORDERED,BUT UNABLE TO INSERT PECK DUE TO OBSTRUCTION AND RESISTANCE. MD AWARE. PT AGITATED ATTEMPTING TO GET OUT OF BED MULTIPLE TIMES TO GO TO THE BATHROOM TO URINATE, URINAL OFFERED MULTIPLE TIMES. ORDERED BAKARI SOFT WRIST RESTRAINS. US TECH WAS AT BEDSIDE, PT UNABLE TO COOPERATE FOR ECHOCARDIOGRAM. WILL ENDORSE TO METER TECHNICIAN.
--- NOTE | 2018-07-16 19:15 | NUR ---
TELE/RN INITIAL NOTES RECEIVED PT IN BED, ALERT, APPEARS CONFUSED, TRYING TO GET OUT OF BED. AFIB HR 90S ON TELEMONITOR. ON 4L O2 VIA NC, TOLERATING WELL. WITH INTACT AND PATENT (R) AC G20 HEPLOCK. WITH BILATERAL SOFT WRIST RESTRAINT, SKIN AND CIRCULATION CHECK DONE. PT HAS AN ORDER FOR 1:1 SITTER, YOLI MARAVILLA NOTIFIED. HOB ELEVATED. SAFETY MEASURES IN PLACED. CALL LIGHT WITHIN EASY REACH. WILL CONT TO MONITOR
[2018-07-16] MEDS ORDERED: LORAZEPAM INJ 2 MG/ML VIAL IV STA (19:24)
--- NOTE | 2018-07-16 19:46 | NUR ---
UNABLE TO PERFORM AN ECHOCARDIOGRAM. PATIENT IS DISORIENTED AND COMBATIVE.
[2018-07-16 20:00] VITALS: BP 145/87
[2018-07-16] MEDS: ATORVASTATIN 40 MG TABLET PO SCH (21:06)
[2018-07-16] MEDS: METOPROLOL TARTRATE 50 MG TABLET PO SCH (21:06)
[2018-07-17] VITALS (26 sets, daily range): BP systolic 98–151; BP diastolic 61–98
--- NOTE | 2018-07-17 07:05 | NUR ---
RN NOTES PT IN STABLE CONDITION. NO ACUTE CHANGES THROUGHOUT SHIFT. ALL NEEDS ANTICIPATED. SAFETY MEASURES AND ASPIRATION PRECAUTION OBSERVED AT ALL TIMES. ENDORSED TO AM SHIFT RN FOR CHARISSA
[2018-07-17 07:49] LABS: CALCIUM, SERUM 7.8 mg/dL (8.5-10.1); CARBON DIOXIDE 25 mmol/L (21-32); CHLORIDE 99 mmol/L (98-107); CREATININE 0.7 mg/dL (0.6-1.3); GLUCOSE 122 mg/dL (74-106); MAGNESIUM 1.9 mg/dL (1.8-2.4); POTASSIUM 3.9 mmol/L (3.5-5.1); SODIUM SERUM 134 mmol/L (136-145); UREA NITROGEN, BLOOD 18 mg/dL (7-18)
[2018-07-17 07:50] LABS: BASOPHILS % (AUTO) 0.2 % (0.0-2.0); CHOLESTEROL 92 mg/dL (<200); EOSINOPHILS % (AUTO) 0.3 % (0.0-6.0); HDL CHOLESTEROL 32 mg/dL (40-60); HEMATOCRIT 39 % (39-51); LDL 51 mg/dL (0-99); LYMPHOCYTES # (AUTO) 0.6 /CMM (0.8-4.8); LYMPHOCYTES % (AUTO) 4.5 % (20.0-44.0); MEAN CORPUSCULAR HGB CONC 33 g/dl (31.0-36.0); MEAN CORPUSCULAR VOLUME 92 fL (80-96); MONOCYTES # (AUTO) 0.5 /CMM (0.1-1.30); MONOCYTES % (AUTO) 4.1 % (2.0-12.0); NEUTROPHILS # (AUTO) 11.8 /CMM (1.8-8.9); NEUTROPHILS % (AUTO) 90.9 % (43.0-81.0); PLATELET COUNT (AUTO) 341 /CMM (150-450); RED BLOOD CELL COUNT(AUTO) 4.23 MIL/uL (4.5-6.0); TRIGLYCERIDES 74 mg/dL (30-150)
[2018-07-17 08:31] LABS: ABG BASE EXCESS 2.9 mmol/L; ABG PCO2 28.8 mmHg (35.0-45.0); ABG PH 7.546 (7.350-7.450); ABG PO2 54.5 mmHg (75.0-100.0); AaDO2 168.8 mmHg; COHb 1.1 % (0.5-1.5); MetHb 0.5 % (0.0-1.5); O2Hb 87.6 % (94.0-97.0); SITE, ABG Left Radial; VENT MODE, BG Nasal Cannula
[2018-07-17] MEDS: ASPIRIN 325 MG TABLET PO SCH (09:00)
[2018-07-17] MEDS: FLUTICASONE/VILANTEROL 1 EACH BLST.W.DEV IH SCH (09:00)
[2018-07-17] MEDS: METOPROLOL TARTRATE 50 MG TABLET PO SCH ×2 (09:00→21:46)
[2018-07-17] MEDS: CHOLECALCIFEROL 1,000 UNIT TABLET (VIT D3) PO SCH (09:00)
[2018-07-17] MEDS ORDERED: Medication Not On Formulary EA (Umeclidinium Brm/Vilanterol Tr (Anoro Ellipta 62.5-25 Mc IH SCH (09:00)
--- NOTE | 2018-07-17 09:38 | NUR ---
RN NOTE AROUND 0740 PT WAS SLEEPY, LETHARGIC, AWAKES FROM TIME TO TIME UPON TOUCHING HIM, O2 SATURATION DROPPING TO 84% ON NC 4 L/MIN, STAT ABG WAS DONE, PT WAS PLACED ON SIMPLE MASK 6 L/MIN, SATURATION DID NOT IMPROVE MUCH, CHANGE TO VENTURI MASK 9 L/MIN 35 %O2, SATURATION WENT TO 96%. PT STILL LETHARGIC, CLIENT ANALYST BRANDY ROBISON AWARE, DR SAHU AWARE AND DR ELLIS NOTIFIED AND GOT ORDER FOR STAT CXR AND TRANSFER TO ICU. REPORT GIVEN TO ZBIGNIEW, CHARGE NURSE AT BEDSIDE AT 0930. PT MORE AWAKE. DAUGHTER NEIL IS AWARE ABOUT SITUATION.
--- NOTE | 2018-07-17 09:40 | NUR ---
DEPUTY HEAD PT TRANSFERRED TO ICU FROM TED FOR RESPIRATORY DISTREES, PT INCONSISTENTLY AROUSEABLE TO VIGOROUS STIMULATION. CONFUSED, DOES NOT FOLLOW COMMANDS. SITTER WITH PT. VMASK INTACT WITH VARIABLE SPO2
--- NOTE | 2018-07-17 09:52 | NUR ---
FOR CT CHEST, PT UNSTABLE PER RN NOTIFIED
--- NOTE | 2018-07-17 10:40 | NUR ---
LAP WINDER PT INTERMITTENTLY AROUSEABLE. AWAITING ABG.
[2018-07-17 11:19] LABS: ABG BASE EXCESS 2.5 mmol/L; ABG PCO2 26.7 mmHg (35.0-45.0); ABG PH 7.562 (7.350-7.450); AaDO2 159.5 mmHg; COHb 1.1 % (0.5-1.5); MetHb 0.6 % (0.0-1.5); O2Hb 89.5 % (94.0-97.0); SITE, ABG Left Radial; VENT MODE, BG VENTI MASK
--- NOTE | 2018-07-17 12:00 | NUR ---
BOWLING BALL GRADER AND MARKER PT MORE AWAKE, CONFUSED. COMMUNICATIVE WITH DAUGHTER. CT SCAN OF THE HEAD ORDERED. WILL NOT BE ABLE TO TAKE TO CT AT THIS TIME BECAUSE OF RESP STATUS. DISCUSSED WITH DR ELLIS.
[2018-07-17] MEDS: DIGOXIN 0.125 MG TABLET PO SCH (13:00)
[2018-07-17] MEDS: IPRATROPIUM NEB FS 0.5 MG/2.5 ML AMPUL.NEB NEB SCH (20:22)
[2018-07-17] MEDS: ALBUTEROL FS 2.5 MG/3 ML VIAL.NEB NEB SCH (20:22)
--- NOTE | 2018-07-17 20:30 | NUR ---
TRANSITIONAL CARE LIAISON NOTES RECEIVED PTS AND REPORT WITH BRITTANIE CORPORATE DEVELOPMENT ANALYST NITE NURSE , PTS IN BED MORE ALERT AWAKE WITH PERIOD OF CONFUSION , PER ENDORSEMENT PTS FOR CT SCAN HEAD MARTINA ORDERED , ALL NEEDS ATTENDED TOO PTS ON SIMPLE MASK AT 10 LITERS OF O2 SATING 95% NO SOB NO DISTRESS NOTED , BREATHING TX ADMINISTERED BY RT , ALL DUE MEDS GIVEN ORDERED KEPT PTS CLEAN DRY AND COMFORTABLE PTS ON CONDOM CATH DRAINING WITH YELLOWISH URINE OUTPUT , HOB ELEVATED AT 35 DEGREES AT ALL TIMES .V/S STABLE AFEBRILE PTS ON MONITOR AFIB UNCONTROLLED ON THE MONITOR,WILL CONTINUE TO MONITOR PTS.
[2018-07-17] MEDS: ATORVASTATIN 40 MG TABLET PO SCH (21:46)
[2018-07-18] VITALS (30 sets, daily range): BP systolic 76–135; BP diastolic 50–90
[2018-07-18] MEDS: ACETYLCYSTEINE 10% SOLN 400 MG/4 ML VIAL NEB SCH ×4 (00:03→23:19)
[2018-07-18] MEDS: ALBUTEROL FS 2.5 MG/3 ML VIAL.NEB NEB SCH ×4 (01:36→19:58)
[2018-07-18] MEDS: IPRATROPIUM NEB FS 0.5 MG/2.5 ML AMPUL.NEB NEB SCH ×4 (01:37→19:58)
[2018-07-18 05:21] LABS: BASOPHILS % (AUTO) 0.2 % (0.0-2.0); EOSINOPHILS % (AUTO) 0.1 % (0.0-6.0); HEMATOCRIT 42 % (39-51); HEMOGLOBIN 13.9 g/dL (13.5-17.5); LYMPHOCYTES # (AUTO) 0.5 /CMM (0.8-4.8); LYMPHOCYTES % (AUTO) 2.5 % (20.0-44.0); MEAN CORPUSCULAR HGB CONC 33 g/dl (31.0-36.0); MEAN CORPUSCULAR VOLUME 94 fL (80-96); MONOCYTES # (AUTO) 1.1 /CMM (0.1-1.30); NEUTROPHILS # (AUTO) 16.5 /CMM (1.8-8.9); NEUTROPHILS % (AUTO) 91.2 % (43.0-81.0); PLATELET COUNT (AUTO) 358 /CMM (150-450); RED BLOOD CELL COUNT(AUTO) 4.52 MIL/uL (4.5-6.0); WHITE BLOOD COUNT (AUTO) 18.1 K/uL (4.3-11.0)
[2018-07-18 05:27] LABS: ALANINE AMINOTRANSFERASE 30 U/L (12-78); ALBUMIN 2.4 g/dL (3.4-5.0); ALKALINE PHOSPHATASE 169 U/L (46-116); ASPARTATE AMINOTRANSFERASE 28 U/L (15-37); BILIRUBIN,TOTAL 0.9 mg/dL (0.2-1.0); CALCIUM, SERUM 8.4 mg/dL (8.5-10.1); CARBON DIOXIDE 26 mmol/L (21-32); CHLORIDE 101 mmol/L (98-107); GLUCOSE 123 mg/dL (74-106); MAGNESIUM 2.1 mg/dL (1.8-2.4); PHOSPHORUS 3.3 mg/dL (2.5-4.9); POTASSIUM 4.4 mmol/L (3.5-5.1); SODIUM SERUM 136 mmol/L (136-145); TOTAL PROTEIN, SERUM 6.5 g/dL (6.4-8.2); UREA NITROGEN, BLOOD 22 mg/dL (7-18)
--- NOTE | 2018-07-18 06:58 | NUR ---
agricultural aircraft pilot nots pts remain in bed with eyes open intubated securedly at 23cm at the lips no sob no distress noted suction secretion done , pts remains on propofol drip at 15mcg /kg/min as ordered remains on cooling blanket latest temp is 99F endorse to rn day shift for continuity of care.
[2018-07-18] MEDS: FLUTICASONE/VILANTEROL 1 EACH BLST.W.DEV IH SCH (08:18)
[2018-07-18] MEDS: ASPIRIN 325 MG TABLET PO SCH (08:18)
[2018-07-18] MEDS: CHOLECALCIFEROL 1,000 UNIT TABLET (VIT D3) PO SCH (08:18)
--- NOTE | 2018-07-18 09:00 | NUR ---
RN NOTE PATIENT TAKEN FOR CT AND CXR
[2018-07-18] MEDS: ENSURE ENLIVE 237 ML LIQUID (VANILLA) PO SCH ×2 (13:00→17:00)
[2018-07-18] MEDS: METOPROLOL TARTRATE 50 MG TABLET PO SCH ×3 (15:22→23:38)
[2018-07-18] MEDS: DIGOXIN 0.125 MG TABLET PO SCH (15:23)
[2018-07-18] MEDS: LEVOFLOXACIN 750 MG /D5W 150ML 750 MG in PREMIX 1 EA IV SCH (15:23)
--- NOTE | 2018-07-18 22:47 | NUR ---
INK MAKER NOTE 1903 Received patient awake and alert x2, confused, reoriented as needed. on 4Lpm of O2 via NC, saturation kept at 90%. Afib with HR in the 110s. noted with frail skin, bony prominences prominent, will turn and reposition frequently. noted patient to be with audible coarse crackles, non-productive cough. HOB elevated. safety and comfort ensured. bed alarm in place. call light in reach. 1999 Patient requested for water, assisted with fluid intake. patient noted to cough with fluid intake. on aspiration precaution. CN made aware. will monitor closely. 2029 Urologist, Dr. Arriola in the unit. Updated MD of the patient's urinary pattern. will monitor urine output closely. Condom catheter in place, patency maintained. [address] Cannon, informed him of the patient's risk for aspiration with coarse crackles heard. Per MD, ok to give meds crushed and con't aspiration precaution. noted. order for swallow eval placed.
[2018-07-19] VITALS (29 sets, daily range): BP systolic 92–152; BP diastolic 58–94
[2018-07-19] MEDS: ALBUTEROL FS 2.5 MG/3 ML VIAL.NEB NEB SCH ×5 (01:13→23:35)
[2018-07-19] MEDS: IPRATROPIUM NEB FS 0.5 MG/2.5 ML AMPUL.NEB NEB SCH ×5 (01:13→23:35)
[2018-07-19 04:32] LABS: BASOPHILS % (AUTO) 0.1 % (0.0-2.0); EOSINOPHILS % (AUTO) 0.1 % (0.0-6.0); HEMATOCRIT 37 % (39-51); HEMOGLOBIN 12.4 g/dL (13.5-17.5); LYMPHOCYTES # (AUTO) 0.5 /CMM (0.8-4.8); LYMPHOCYTES % (AUTO) 3.8 % (20.0-44.0); MEAN CORPUSCULAR HGB CONC 33 g/dl (31.0-36.0); MEAN CORPUSCULAR VOLUME 92 fL (80-96); MONOCYTES # (AUTO) 0.7 /CMM (0.1-1.30); NEUTROPHILS # (AUTO) 10.9 /CMM (1.8-8.9); PLATELET COUNT (AUTO) 320 /CMM (150-450); RED BLOOD CELL COUNT(AUTO) 4.07 MIL/uL (4.5-6.0); WHITE BLOOD COUNT (AUTO) 12.1 K/uL (4.3-11.0)
[2018-07-19 04:46] LABS: CALCIUM, SERUM 8.3 mg/dL (8.5-10.1); CARBON DIOXIDE 27 mmol/L (21-32); CHLORIDE 99 mmol/L (98-107); GLUCOSE 119 mg/dL (74-106); POTASSIUM 3.7 mmol/L (3.5-5.1); SODIUM SERUM 128 mmol/L (136-145); UREA NITROGEN, BLOOD 33 mg/dL (7-18)
[2018-07-19] MEDS: METOPROLOL TARTRATE 50 MG TABLET PO SCH ×3 (06:03→17:33)
--- NOTE | 2018-07-19 06:31 | NUR ---
LEAD DEVELOPER CLOSING NOTE Patient with no acute distress observed overnight. Remains on 4Lpm of O2 via NC, saturation kept >90%. Coarse to coarse crackles still noted on both lung schilling. HOB elevated for aspiration precautions. Strict aspiration precaution maintained. Afib with HR in the 80-90s, Metoprolol given as ordered with good help, BP stable. Condom catheter kept being pulled by patient off, diaper placed instead. Patient with good urine output noted, incontinent, diaper changed and kept patient clean and dry. Bony prominences protected with Mepilex. turned and repositioned patient [id number] and PRN. safety and comfort ensured. bed alarm in place. call light within reach. will endorse accordingly.
[2018-07-19] MEDS: ACETYLCYSTEINE 10% SOLN 400 MG/4 ML VIAL NEB SCH ×3 (07:37→23:35)
--- NOTE | 2018-07-19 08:00 | NUR ---
ICU/RN: Pt noted restless, attempting to get out of bed, confused. Noted with soaked diaper. Hygienic care rendered. Instructed pt to call for assistance. Needs reinforcement. Fall precautions in place.
[2018-07-19] MEDS: ASPIRIN 325 MG TABLET PO SCH (08:23)
[2018-07-19] MEDS: CHOLECALCIFEROL 1,000 UNIT TABLET (VIT D3) PO SCH (08:23)
[2018-07-19] MEDS: FLUTICASONE/VILANTEROL 1 EACH BLST.W.DEV IH SCH (08:24)
--- NOTE | 2018-07-19 08:48 | NUR ---
WOUND CARE CONSULT: PT PRESENTS WITH SKIN TEAR TO RT UPPER ARM, BRUISING TO ARMS AND HIP, PRESENT ON ADMISSION. PT IS EXTREMELY THIN AND BONY. RECOMMENDATIONS MADE FOR WOUND CARE AND SKIN PROTECTION. DISCUSSED WITH NURSING STAFF. WILL SEE PRN. LANDIN IN AGREEMENT WITH PLAN OF CARE. Addendum: 07/19/18 at 0849 by NAZARIO BROWN WNDNU Amended: Links added.
[2018-07-19] MEDS: ENSURE ENLIVE 237 ML LIQUID (VANILLA) PO SCH ×3 (09:19→16:30)
[2018-07-19] MEDS: IV D5/ 0.9% NACL 1,000 ML IV PRN (09:23)
[2018-07-19] MEDS: DIGOXIN 0.125 MG TABLET PO SCH (12:39)
--- NOTE | 2018-07-19 13:30 | NUR ---
ICU/RN: Dr Grace at bedside, updated on pt status, no distress noted. Cleared for TED downgrade by MD. Video swallow ordered; pt high risk for aspiration on honey-textured liquids. Strict aspiration precautions observed.
--- NOTE | 2018-07-19 15:00 | NUR ---
ICU/RN: Daughter at bedside; updated on pt status. Aware of possible downgrade. Will notify daughter of room change.
--- NOTE | 2018-07-19 19:15 | NUR ---
ICU/RN Pt resting comfortably in bed, no distress, breathing even and unlabored. Pleasantly confused, reading. Fall precautions in place. Bedside report given to noc RN for CHARISSA.
--- NOTE | 2018-07-19 20:10 | NUR ---
RN OPENING NOTES RECEIVED REPORT FROM ALEJANDRA KEMP. PATIENT A/A/O X1-2 W/ SOME CONFUSION. BREATHING EVEN & UNLABORED, TOLERATING O2 @ 2LPM VIA NC & SATING WELL @ 94%. ON TELE W/ CONTROLLED A-FIB, HR 90. RIGHT UPPER ARM MIDLINE & RIGHT FA #20 INTACT & PATENT W/ DRESSING CDI & IVF NS INFUSING WELL @ 75 ML/HR. SAFETY MEASURES IN PLACE W/ SIDE RAILS UP & BED ALARM ON. TURNED & REPOSITIONED FOR COMFORT. HOB ELEVATED FOR ASPIRATION PRECAUTIONS. WILL CONTINUE TO MONITOR CLOSELY. Addendum: 07/19/18 at 2037 by LALITO AMADOR RN IVF D5 NS*
--- NOTE | 2018-07-19 21:33 | NUR ---
RN NOTES TRANSFERRED PATIENT TO TED ROOM 115-1. REPORT GIVEN TO HERNÁN KEMP FOR CHARISSA.
[2018-07-20] VITALS: BP 129/73
[2018-07-20] MEDS: METOPROLOL TARTRATE 50 MG TABLET PO SCH ×4 (00:40→17:58)
[2018-07-20 04:00] VITALS: BP 97/56
[2018-07-20 06:29] LABS: CALCIUM, SERUM 7.6 mg/dL (8.5-10.1); CARBON DIOXIDE 25 mmol/L (21-32); CHLORIDE 107 mmol/L (98-107); CREATININE 0.7 mg/dL (0.6-1.3); GLUCOSE 107 mg/dL (74-106); MAGNESIUM 2.1 mg/dL (1.8-2.4); PHOSPHORUS 3.2 mg/dL (2.5-4.9); POTASSIUM 3.4 mmol/L (3.5-5.1); SODIUM SERUM 143 mmol/L (136-145); UREA NITROGEN, BLOOD 24 mg/dL (7-18)
[2018-07-20 06:37] LABS: BASOPHILS % (AUTO) 0.3 % (0.0-2.0); EOSINOPHILS % (AUTO) 0.9 % (0.0-6.0); HEMATOCRIT 35 % (39-51); HEMOGLOBIN 11.7 g/dL (13.5-17.5); LYMPHOCYTES # (AUTO) 0.6 /CMM (0.8-4.8); LYMPHOCYTES % (AUTO) 5.7 % (20.0-44.0); MEAN CORPUSCULAR HGB CONC 33 g/dl (31.0-36.0); MEAN CORPUSCULAR VOLUME 92 fL (80-96); MONOCYTES # (AUTO) 0.7 /CMM (0.1-1.30); MONOCYTES % (AUTO) 6.8 % (2.0-12.0); NEUTROPHILS # (AUTO) 8.4 /CMM (1.8-8.9); NEUTROPHILS % (AUTO) 86.3 % (43.0-81.0); PLATELET COUNT (AUTO) 339 /CMM (150-450); RED BLOOD CELL COUNT(AUTO) 3.83 MIL/uL (4.5-6.0); WHITE BLOOD COUNT (AUTO) 9.8 K/uL (4.3-11.0)
[2018-07-20 08:00] VITALS: BP 108/74
--- NOTE | 2018-07-20 08:00 | NUR ---
TED RN NOTE RECEIVED PT IN THE BED. AWAKE WITH CONFUSION. PT ON TELE MONITOR AFIB 94. PT HAS R FOREARM #20 INTACT NO SIGNS OF INFECTION NOTED. PT ON O2 3L NC. NO SOB NOTED. PT HAS BOTH LEGS DVT PUMP. R UPPER MIDLINE. BED IN LOWEST POSITION. PLAN OF CARE DISCUSSED WITH THE PT. CALL LIGHT WITHIN REACH. WILL FEED THE PT. WILL CONTINUE TO MONITOR PT CLOSELY. SPEECH THERAPIST ON BEDSIDE STATES OK TO GIVE FOOD. VIDEO SWALLOW EVAL WILL BE DONE TODAY
[2018-07-20] MEDS: ALBUTEROL FS 2.5 MG/3 ML VIAL.NEB NEB SCH ×3 (08:15→19:06)
[2018-07-20] MEDS: ACETYLCYSTEINE 10% SOLN 400 MG/4 ML VIAL NEB SCH ×2 (08:15→15:17)
[2018-07-20] MEDS: IPRATROPIUM NEB FS 0.5 MG/2.5 ML AMPUL.NEB NEB SCH ×3 (08:15→19:06)
[2018-07-20] MEDS: CHOLECALCIFEROL 1,000 UNIT TABLET (VIT D3) PO SCH (08:48)
[2018-07-20] MEDS: ENSURE ENLIVE 237 ML LIQUID (VANILLA) PO SCH ×3 (08:48→16:05)
[2018-07-20] MEDS: FLUTICASONE/VILANTEROL 1 EACH BLST.W.DEV IH SCH (08:48)
[2018-07-20] MEDS: ASPIRIN 325 MG TABLET PO SCH (08:48)
--- NOTE | 2018-07-20 09:24 | NUR ---
TED RN NOTES DR SAHU AND DR ELLIS ARE BOTH ON BEDSIDE. AWARE THAT THE PATIENT'S NAIL BED COLOR IS WHITE-GRAYISH, STATED POSSIBLE FUNGAL. UNABLE TO EAT BREAKFAST, STARTS TO COUGH. ST AWARE AND DR ELLIS AWARE THAT THE PT HAS POOR APPETITE.
[2018-07-20] MEDS ORDERED: POTASSIUM CHLORIDE 20 MEQ TAB.PRT.SR PO SCH (11:00)
--- NOTE | 2018-07-20 11:00 | NUR ---
MS RN NOTE TAKEN TO THE VIDEO SWALLOW EVAL ORDERED. ON STABLE CONDITION.
[2018-07-20] MEDS: DIGOXIN 0.125 MG TABLET PO SCH (12:49)
--- NOTE | 2018-07-20 13:09 | NUR ---
MS RN NOTE PER SPEECH THERAPIST DID SWALLOW EVAL. DAUGHTER ON BEDISE. SPOKE TO ST. PT IS HIGH RISK ON ASPIRATION. DAUGHTER INSISTED TO FEED THE PT. ST VERBALIZED WILL ORDER PUREE DIET.
--- NOTE | 2018-07-20 13:29 | NUR ---
MS RN NOTE PT ABLE TO SIT ON THE CHAIR FROM THE BED. NO SOB. NO DISTRESS. FAMILY ON BEDSIDE.
[2018-07-20] MEDS: LEVOFLOXACIN 750 MG /D5W 150ML 750 MG in PREMIX 1 EA IV SCH (14:16)
--- NOTE | 2018-07-20 15:18 | NUR ---
MS RN NOTE ON BREATHING TX BY RT , NOT IN ACUTE DISTRESS
[2018-07-20 16:00] VITALS: BP 108/63
[2018-07-20 16:37] VITALS: BP 108/64
--- NOTE | 2018-07-20 18:18 | NUR ---
MS RN NOTE FED BY STAFF. CONTINUE CARE. ALL NEEDS ATTENDED. CALL RIGHT WITHIN REACH. WILL CONTINUE TO MONITOR.
--- NOTE | 2018-07-20 19:30 | NUR ---
RN MS NOTES, RECEIVED PT IN THE BED. AWAKE A/O TO SELF, PT ON O2 3L NC BREATHING EVEN AND UNLABORED, NO S/S OF SOB/ACUTE DISTRESS NOTED, RIGHT FOREARM #20, AND [place] MIDLINE, PATENT AND INTACT, NO S/S OF INFILTRATION OR INFECTION NOTED, BED IN LOWEST POSITION, CALL LIGHT WITHIN REACH, WILL CONTINUE TO MONITOR PT CLOSELY, ALL SAFETY MEASURES IN PLACED, ON ASPIRATION/FALL PRECAUTIONS, WILL CONTINUE TO MONITOR CLOSELY.
[2018-07-20 20:00] VITALS: BP 107/66
[2018-07-21] MEDS: ALBUTEROL FS 2.5 MG/3 ML VIAL.NEB NEB SCH ×3 (00:29→15:31)
[2018-07-21] MEDS: ACETYLCYSTEINE 10% SOLN 400 MG/4 ML VIAL NEB SCH ×3 (00:29→15:32)
[2018-07-21] MEDS: IPRATROPIUM NEB FS 0.5 MG/2.5 ML AMPUL.NEB NEB SCH ×3 (00:29→15:31)
[2018-07-21] MEDS: METOPROLOL TARTRATE 50 MG TABLET PO SCH ×3 (00:57→12:27)
[2018-07-21 04:00] VITALS: BP 128/71
--- NOTE | 2018-07-21 06:25 | NUR ---
RN MS NOTES, PT IN THE BED SLEEPING AT THIS TIME, PT ON O2 3L NC BREATHING EVEN AND UNLABORED, NO S/S OF SOB/ACUTE DISTRESS NOTED, RIGHT FOREARM #20, AND [place] MIDLINE, PATENT AND INTACT S/S, NO S/S OF INFILTRATION OR INFECTION NOTED, BED IN LOWEST POSITION, CALL LIGHT WITHIN REACH, METOPROLOL NOT ADMINISTER AT THIS TIME, DUE TO BP SBP 108, ALL SAFETY MEASURES IN PLACED, ON ASPIRATION/FALL PRECAUTIONS, WILL NO SIGNIFICANT CHANGE ION CONDITION THROUGHOUT THE NIGHT, WILL ENDORSE TO ONCOMING NURSE FOR CONTINUITY OF CARE.
[2018-07-21 07:40] LABS: CALCIUM, SERUM 8.5 mg/dL (8.5-10.1); CARBON DIOXIDE 23 mmol/L (21-32); CHLORIDE 111 mmol/L (98-107); CREATININE 0.8 mg/dL (0.6-1.3); GLUCOSE 105 mg/dL (74-106); MAGNESIUM 2.3 mg/dL (1.8-2.4); POTASSIUM 3.9 mmol/L (3.5-5.1); SODIUM SERUM 144 mmol/L (136-145); UREA NITROGEN, BLOOD 27 mg/dL (7-18)
[2018-07-21 07:42] LABS: BASOPHILS % (AUTO) 0.2 % (0.0-2.0); EOSINOPHILS % (AUTO) 0.6 % (0.0-6.0); HEMATOCRIT 36 % (39-51); HEMOGLOBIN 12.1 g/dL (13.5-17.5); LYMPHOCYTES # (AUTO) 0.5 /CMM (0.8-4.8); LYMPHOCYTES % (AUTO) 5.5 % (20.0-44.0); MEAN CORPUSCULAR HGB CONC 33 g/dl (31.0-36.0); MEAN CORPUSCULAR VOLUME 94 fL (80-96); MONOCYTES # (AUTO) 0.7 /CMM (0.1-1.30); MONOCYTES % (AUTO) 7.2 % (2.0-12.0); NEUTROPHILS # (AUTO) 8.4 /CMM (1.8-8.9); NEUTROPHILS % (AUTO) 86.5 % (43.0-81.0); PLATELET COUNT (AUTO) 369 /CMM (150-450); RED BLOOD CELL COUNT(AUTO) 3.88 MIL/uL (4.5-6.0); WHITE BLOOD COUNT (AUTO) 9.8 K/uL (4.3-11.0)
--- NOTE | 2018-07-21 07:50 | NUR ---
RN NOTE: RECEIVED PATIENT IN BED, AWAKE, ALERT OT HIS NAME WITH INTERMITTENT CONFUSION. RESPIRATION EVEN AND UNLABORED WITH O2 2L/MIN VIA NC SATURATING 97%. DENIED ANY PAIN. ON ASPIRATION PRECAUTION. (R) UA MIDLINE AND (R) FOREARM IV SITE NOTED INTACT AND PATENT. BED ALARMED AND LOCKED AT ALL TIMES. ON LOWEST POSITION. CALL LIGHT WITHIN REACH. NEEDS ANTICIPATED.
[2018-07-21 08:00] VITALS: BP 138/81
[2018-07-21] MEDS: ENSURE ENLIVE 237 ML LIQUID (VANILLA) PO SCH ×2 (09:00→13:00)
[2018-07-21] MEDS: CHOLECALCIFEROL 1,000 UNIT TABLET (VIT D3) PO SCH (09:36)
[2018-07-21] MEDS: FLUTICASONE/VILANTEROL 1 EACH BLST.W.DEV IH SCH (09:36)
[2018-07-21] MEDS: ASPIRIN 325 MG TABLET PO SCH (09:36)
[2018-07-21] MEDS: IV D5/ 0.9% NACL 1,000 ML IV PRN (11:36)
[2018-07-21] MEDS: DIGOXIN 0.125 MG TABLET PO SCH (12:27)
[2018-07-21] MEDS ORDERED: LEVO750T21 PO (15:20)
[2018-07-21 16:00] VITALS: BP 115/75
--- NOTE | 2018-07-21 17:11 | NUR ---
RN NOTE: PATIENT WAS DISCHARGED TO HOME WITH HIS DAUGHTER NEIL VIA PRIVATE CAR. PATIENT WAS WHEELED TO THE HOSPITAL MAIN LOBBY VIA WHEELCHAIR BY THE ASSIGNED LINK TRAINER OPERATOR. ALL BELONGINGS WERE RELEASED WITH THE PATIENT INCLUDING HIS UPPER AND LOWER DENTURES AND (R) EAR HEARING AID. EXIT CARE WAS DONE AND DAUGHTER NEIL WAS GIVEN DISCHARGE INSTRUCTIONS INCLUDING THE PO LEVAQUIN ANTIBIOTIC TO BE CALLED IN BY DR. BRIDGES TO [facility] TEL #: [phone] AND TO BE STARTED BY TOMORROW MORNING. [facility] WAS ALSO ARRANGED AND WILL START TO VISIT THE PATIENT BY TOMORROW WELL. NO FURTHER QUESTIONS FROM THE DAUGHTER UPON DISCHARGE.
== END 2018-07-21 17:11 | disposition home health service (06) | DRG 291 ==
LOC: ER 12:48 → TELE1 16:02 → ICU 07-17 09:26 → TELE-TD 07-19 21:23 → MEDSG1 07-20 09:25
PROVIDERS: ADMIT Nurse Practitioner Acute Care; ATTEND Internal Medicine
PROC: 05H533Z Insertion of Infusion Device into Right Subclavian Vein, Percutaneous Approach (ICD-10-PCS; principal; 2018-07-17)
DX: I11.0 Hypertensive heart disease with heart failure (principal); J96.21 Acute and chronic respiratory failure with hypoxia; G92 Toxic encephalopathy; J15.9 Unspecified bacterial pneumonia; E87.1 Hypo-osmolality and hyponatremia; E46 Unspecified protein-calorie malnutrition; R64 Cachexia; Z68.1 Body mass index [BMI] 19.9 or less, adult; N39.0 Urinary tract infection, site not specified; I50.33 Acute on chronic diastolic (congestive) heart failure; E78.5 Hyperlipidemia, unspecified; N35.919 Unspecified urethral stricture, male, unspecified site; F02.80 Dementia in other diseases classified elsewhere, unspecified severity, without behavioral disturbance, psychotic disturbance, mood disturbance, and anxiety; G30.9 Alzheimer's disease, unspecified; Z85.038 Personal history of other malignant neoplasm of large intestine; J84.10 Pulmonary fibrosis, unspecified; G20 Parkinson's disease; I27.20 Pulmonary hypertension, unspecified; D72.829 Elevated white blood cell count, unspecified; I48.2 Chronic atrial fibrillation; R73.9 Hyperglycemia, unspecified; E83.51 Hypocalcemia; M62.84 Sarcopenia; W18.30XA Fall on same level, unspecified, initial encounter; Y92.89 Other specified places as the place of occurrence of the external cause; R26.9 Unspecified abnormalities of gait and mobility; R07.81 Pleurodynia; J43.9 Emphysema, unspecified; Z88.0 Allergy status to penicillin; Z98.2 Presence of cerebrospinal fluid drainage device; R31.29 Other microscopic hematuria; Z99.81 Dependence on supplemental oxygen; Z87.891 Personal history of nicotine dependence; Z85.46 Personal history of malignant neoplasm of prostate; S00.411A Abrasion of right ear, initial encounter; M19.90 Unspecified osteoarthritis, unspecified site
CPT/HCPCS: 36415; 36569; 36600; 70450-TC; 71045-TC; 71100-TC; 71250-TC; 72170-TC; 74230-TC; 80048-TC; 80053-TC; 80061-TC; 80076-TC; 80162-TC; 81000-TC; 82962-TC; 83735-TC; 83880; 84100-TC; 84484-TC; 85025-TC; 85730-TC; 87040-TC; 87081-TC; 92526; 92611-TC; 93307-TC; 93970-TC; 94760-TC; 94799-TC; A4216; A4349; A6402; G0378; J1940; J1956; J2060; J3490; J7042; J7050

== ENCOUNTER 2018-08-19 08:09 | Inpatient (IN) | payer BC ==
[~2018-08-19] VITALS: Ht 157.5 cm; Wt 41.7 kg
[2018-08-19] VITALS (43 sets, daily range): BP systolic 82–199; BP diastolic 42–157
[~2018-08-19 08:09] MED LIST changes: -ALEN70TA6; -ASPI-1169 PO; +ASPI-992 PO; -CARB1TAB21; -CARV12.5 PO; +CHOL50004 PO; -CLOP75TA15 PO; +CLOT15CR63 TP; -LEVO250T2 PO; +LEVO750T21 PO; -PRED20TA PO; -PRED5TAB48 PO; +UMEC1BLS IH
--- NOTE | 2018-08-19 08:09 | NUR ---
RHIANNA 89 FROM HOME C/O SOB, AUDIBLE ADORECHI, SPO2=93% ON NR AT 15L, TO ER BED 8, HOOKED TO MONITOR, RT AT BEDSIDE, CHANGED TO GOWN. AWAITING MD SEQUEIRA
--- NOTE | 2018-08-19 08:18 | NUR ---
DR MAYA AT BEDSIDE
--- NOTE | 2018-08-19 08:34 | NUR ---
PT REC'D ON NRB MASK 15LPM. PT SHOWED SIGNS OF TACHYPNEA AND RESP DISTRESS. B/S ARE RHONCHI THROUGHOUT ALL LUNG MARTÍNEZ. PT NT SX'D FOR LARGE AMT OF THIN YELLOW SECRETIONS. PT PLACED ON BIPAP PER MD ORDERS. ABG TO BE TAKEN IN 30 MINUTES ON BIPAP. ALARMS ARE SET AND AUDIBLE. BIPAP PLUGGED INTO RED OUTLET. AMBU BAG BEDSIDE. WILL CONTINUE TO MONITOR Addendum: 08/19/18 at 0851 by SAL GRANGER RT Amended: Links added.
[2018-08-19 08:46] LABS: BASOPHILS % (AUTO) 0.1 % (0.0-2.0); HEMATOCRIT 46 % (39-51); HEMOGLOBIN 14.3 g/dL (13.5-17.5); LYMPHOCYTES # (AUTO) 0.5 /CMM (0.8-4.8); LYMPHOCYTES % (AUTO) 3.1 % (20.0-44.0); MEAN CORPUSCULAR HGB CONC 31 g/dl (31.0-36.0); MEAN CORPUSCULAR VOLUME 98 fL (80-96); MONOCYTES # (AUTO) 0.5 /CMM (0.1-1.30); MONOCYTES % (AUTO) 3.4 % (2.0-12.0); NEUTROPHILS # (AUTO) 14.6 /CMM (1.8-8.9); NEUTROPHILS % (AUTO) 93.4 % (43.0-81.0); PLATELET COUNT (AUTO) 371 /CMM (150-450); WHITE BLOOD COUNT (AUTO) 15.6 K/uL (4.3-11.0)
[2018-08-19 08:53] LABS: CARBON DIOXIDE 16 mmol/L (21-32); CHLORIDE 103 mmol/L (98-107); CREATININE 2.4 mg/dL (0.6-1.3); GLUCOSE 130 mg/dL (74-106); POTASSIUM 4.6 mmol/L (3.5-5.1); SODIUM SERUM 139 mmol/L (136-145); UREA NITROGEN, BLOOD 25 mg/dL (7-18)
[2018-08-19 09:06] LABS: ALANINE AMINOTRANSFERASE 39 U/L (12-78); ALBUMIN 2.4 g/dL (3.4-5.0); ALKALINE PHOSPHATASE 171 U/L (46-116); ASPARTATE AMINOTRANSFERASE 84 U/L (15-37); BILIRUBIN,DIRECT 0.2 mg/dL (0.0-0.2); BILIRUBIN,TOTAL 0.6 mg/dL (0.2-1.0); TOTAL PROTEIN, SERUM 7.1 g/dL (6.4-8.2)
--- NOTE | 2018-08-19 09:06 | NUR ---
DR SAHU CALLED AND SPOKE WITH DR MAYA
[2018-08-19] MEDS ORDERED: ALBU18HF2 INH (09:13)
[2018-08-19 09:22] LABS: BAND % (MANUAL) 4 % (0.0-5.0); LYMPHOCYTES % (MANUAL) 2 % (16-48); MONOCYTES % (MANUAL) 1 % (0-11.0); NEUTROPHILS % (MANUAL) 93 (42-76)
[2018-08-19] MEDS ORDERED: IV NS 0.9% 1,000 ML IV ONE (09:30)
[2018-08-19] MEDS ORDERED: ASPIRIN 300 MG/SUPP.RECT RC ONE ×2 (09:30→09:37)
[2018-08-19 09:31] LABS: B-TYPE NATRIURETIC PEPTIDE 35229 PG/ML (0-125)
--- NOTE | 2018-08-19 09:58 | NUR ---
ASSIGNED TO BED [facility]
[2018-08-19] MEDS ORDERED: ALBUTEROL FS 2.5 MG/3 ML VIAL.NEB CONTNEB ONE (10:00)
[2018-08-19 10:23] LABS: ABG BASE EXCESS -17.1 mmol/L; ABG PCO2 24.4 mmHg (35.0-45.0); ABG PH 7.199 (7.350-7.450); ABG PO2 405.1 mmHg (75.0-100.0); AaDO2 283.5 mmHg; COHb 0.3 % (0.5-1.5); MetHb 0.5 % (0.0-1.5); O2Hb 98.2 % (94.0-97.0); SITE, ABG Right Brachial
--- NOTE | 2018-08-19 10:25 | NUR ---
liliya taken and results given to dr webster. Titrate Fi02 per dr webster request Addendum: 08/19/18 at 1026 by SAL GRANGER RT Amended: Links added.
[2018-08-19] MEDS ORDERED: LEVOFLOXACIN 750 MG /D5W 150ML 750 MG in PREMIX 1 EA IV SCH (10:30)
[2018-08-19] MEDS ORDERED: HEPARIN INFUSION/D5W 500 ML IV PRN (10:30)
--- NOTE | 2018-08-19 10:40 | NUR ---
REPORT GIVEN TO ARACELIS KEMP OF ICU FOR CHARISSA
--- NOTE | 2018-08-19 10:42 | NUR ---
US TECH AT BEDSIDE
[2018-08-19] MEDS ORDERED: LEVOFLOXACIN 750 MG /D5W 150ML 750 MG in PREMIX 1 EA IV ONE (10:46)
[2018-08-19] MEDS ORDERED: Z GUARD REMEDY 2 OZ OINT TP PRN (12:00)
[2018-08-19] MEDS ORDERED: ACETAMINOPHEN 325 MG TABLET PO PRN (12:00)
[2018-08-19] MEDS ORDERED: MAG HYDROX/AL HYDROX/SIMETH 30 ML UDC PO PRN (12:00)
[2018-08-19] MEDS ORDERED: PIPERACILLIN /TAZOBACTAM 3.375 G in IV D5W 50 ML IV SCH (12:00)
[2018-08-19] MEDS ORDERED: HYDROCODONE/APAP 5/325MG 1 EACH TABLET PO PRN (12:00)
[2018-08-19] MEDS ORDERED: ONDANSETRON HCL/PF 4 MG/2 ML VIAL IVP PRN (12:00)
[2018-08-19] MEDS ORDERED: ZOLPIDEM TARTRATE 5 MG TABLET PO PRN (12:00)
[2018-08-19] MEDS ORDERED: MAGNESIUM HYDROXIDE 30 ML UDC PO PRN (12:00)
[2018-08-19] MEDS: IPRATROPIUM NEB FS 0.5 MG/2.5 ML AMPUL.NEB NEB SCH ×4 (12:08→23:27)
[2018-08-19] MEDS ORDERED: FEE PK DOSING 1 MIN EA MC ONE (12:09)
[2018-08-19] MEDS: IV NS 0.9% 1,000 ML IV PRN ×2 (12:22→23:33)
[2018-08-19] MEDS: methylPREDNISolone SOD SUCC 125 MG/2ML VIAL IV SCH ×2 (12:23→21:39)
[2018-08-19] MEDS ORDERED: VANCOMYCIN 500 MG in IV D5W 100 ML IV PRN (12:30)
[2018-08-19] MEDS ORDERED: VANCOMYCIN 1 GM in IV D5W 250 ML IV ONE (12:30)
[2018-08-19] MEDS ORDERED: HEPARIN SODIUM, PORCINE 5000 UNITS/1 ML VIAL IV ONE (12:30)
[2018-08-19] MEDS ORDERED: ALBUTEROL FS 2.5 MG/3 ML VIAL.NEB NEB PRN (13:30)
[2018-08-19 13:47] LABS: ABG BASE EXCESS -12.2 mmol/L; ABG OXYGEN SATURATION 96.9 % (92.0-98.5); ABG PCO2 21.3 mmHg (35.0-45.0); ABG PH 7.346 (7.350-7.450); ABG PO2 99.3 mmHg (75.0-100.0); AaDO2 161.4 mmHg; COHb 0.3 % (0.5-1.5); MetHb 0.7 % (0.0-1.5); O2Hb 95.9 % (94.0-97.0); SITE, ABG Right Radial
[2018-08-19] MEDS: PIPERACILLIN /TAZOBACTAM 2.25 G in IV D5W 50 ML IV SCH ×2 (13:59→21:39)
--- NOTE | 2018-08-19 14:00 | NUR ---
received pt from ER, alert, follows commands at times, confused, Afib controlled, on heparin drip at 630 unit/hr, on bipap 40% fio2, sat well, lungs congested, no edema, NPO, v/s stable, no pain, pt turned and repositioned, family at the bedside.
--- NOTE | 2018-08-19 16:42 | NUR ---
pt is resting in the bed, on bipap, sat well, follows simple commands, Afib controlled, on heparin drip at 630 unit/hr, no bleeding noted, v/s stable, no pain, pt cleaned and changed.
[2018-08-19] MEDS: CLOTRIMAZOLE 1% 15 GM TUBE TP SCH (16:46)
[2018-08-19] MEDS ORDERED: FUROSEMIDE 40 MG/4 ML VIAL IV SCH (17:00)
--- NOTE | 2018-08-19 20:00 | NUR ---
ICU/GI ASST LACTIC ACID 8.5 WHICH IS DOWN FROM EARLIER LACTIC ACID. WILL CONTINUE TO MONITOR THIS PT'S LABS
[2018-08-19] MEDS ORDERED: METOPROLOL TARTRATE 50 MG TABLET PO SCH (21:00)
--- NOTE | 2018-08-19 21:10 | NUR ---
ICU/COMPLIANCE ASSISTANT APTT IS 166.9 WHICH FROM THE PRINTED ORDERS FOR AMI, THIS MEANS THE HEPARIN WAS TO BE TURNED OFF FOR 1 HOUR THEN TURNED BACK ON AT 2200. WHEN TURNED ON AT 22OO THE DECREASED HEPARIN DOWN 150 UNITS FROM 630UNITS WHICH WILL NOW MAKE THE HEPARIN AT 480UNITS/9.6 ML. PT'S NEXT APTT IS AT 0300. CHARGE NURSE AWARE OF THE RESULTS.
[2018-08-19] MEDS ORDERED: ATORVASTATIN 40 MG TABLET PO SCH (22:00)
--- NOTE | 2018-08-19 22:10 | NUR ---
ICU/SALES AND CATERING COORDINATOR PT'S HEPARIN TURNED ON AT 480 UNITS, NEXT APTT IS AT 0300.
--- NOTE | 2018-08-19 23:43 | NUR ---
ICU/HOT METAL CRANE OPERATOR FLACC SCALE USED TO DETERMINE THAT PT'S IS IN PAIN RATED AT 7/10. NORCO 1 TAB GIVEN FOR THIS. ALSO RR RATE IS 40'S. PT WAS TURNED AND REPOSITIONED FOR COMFORT AND CARE. WILL CONTINUE TO MONITOR THIS PT'S PAIN AND RR .
[2018-08-20] VITALS (137 sets, daily range): BP systolic 43–191; BP diastolic 25–107
--- NOTE | 2018-08-20 02:30 | NUR ---
ICU/PAINTER SET WENT IN TO GET A GOOD PULSE OX READING, PT IS CURRENTLY DUSKY IN SKIN APPEARANCE. CALLED RT TO HELP PULSE OX.
--- NOTE | 2018-08-20 02:45 | NUR ---
ICU/BONING ROOM WORKER D/C'D RESTRAINTS PT IS NO LONGER PULLING AT LINES. WILL CONTINUE TO MONITOR THIS PT.
--- NOTE | 2018-08-20 03:20 | NUR ---
ICU/MOTHER HELPER CODE VALUE CALLED DUE TO PEA, SATURATION DECREASED DOWN TO 70'S WITH HEART RATE FROM 100'S TO 50'S. CALLED A CODE BLUE. PT WAS INTUBATED THEN STAT LABS WITH CHEST XRAY DONE. RETURN TO ROSC WITH INTUBATION. ALSO CALLED THE FAMILY ABOUT THE CODE TO GET A CHANGE IN CODE STATUS. UNABLE OT GET A CHANGE CODE STAUS WITH DAUGHTER. ER MD ORDERED N/G TUBE.
--- NOTE | 2018-08-20 03:23 | NUR ---
PT WENT INTO CARDIAC ARREST AT 0305, started manual bag mask ventilation, at 0310 pt was intubated size 7 tube lip line at 21cm by DR CONTRERSA and placed on Ventilator.
[2018-08-20] MEDS: IPRATROPIUM NEB FS 0.5 MG/2.5 ML AMPUL.NEB NEB SCH ×6 (03:26→23:30)
[2018-08-20 04:05] LABS: CALCIUM, SERUM 7.2 mg/dL (8.5-10.1); CARBON DIOXIDE 13 mmol/L (21-32); CHLORIDE 111 mmol/L (98-107); CREATININE 2.6 mg/dL (0.6-1.3); GLUCOSE 163 mg/dL (74-106); MAGNESIUM 2.2 mg/dL (1.8-2.4); PHOSPHORUS 7.1 mg/dL (2.5-4.9); SODIUM SERUM 140 mmol/L (136-145); UREA NITROGEN, BLOOD 41 mg/dL (7-18)
[2018-08-20 04:10] LABS: BASOPHILS % (AUTO) 0.2 % (0.0-2.0); EOSINOPHILS % (AUTO) 0.8 % (0.0-6.0); HEMATOCRIT 37 % (39-51); HEMOGLOBIN 10.7 g/dL (13.5-17.5); LYMPHOCYTES # (AUTO) 1.8 /CMM (0.8-4.8); LYMPHOCYTES % (AUTO) 18.5 % (20.0-44.0); MEAN CORPUSCULAR HGB CONC 29 g/dl (31.0-36.0); MEAN CORPUSCULAR VOLUME 105 fL (80-96); MONOCYTES # (AUTO) 0.5 /CMM (0.1-1.30); MONOCYTES % (AUTO) 5.7 % (2.0-12.0); NEUTROPHILS # (AUTO) 7.1 /CMM (1.8-8.9); NEUTROPHILS % (AUTO) 74.8 % (43.0-81.0); PLATELET COUNT (AUTO) 272 /CMM (150-450); RED BLOOD CELL COUNT(AUTO) 3.49 MIL/uL (4.5-6.0); WHITE BLOOD COUNT (AUTO) 9.6 K/uL (4.3-11.0)
[2018-08-20 04:14] LABS: ABG BASE EXCESS -23.2 mmol/L; ABG OXYGEN SATURATION 91.7 % (92.0-98.5); ABG PCO2 56.5 mmHg (35.0-45.0); AaDO2 554.5 mmHg; COHb 0.9 % (0.5-1.5); MetHb 0.8 % (0.0-1.5); O2Hb 90.1 % (94.0-97.0); SITE, ABG Left Brachial
[2018-08-20 04:15] LABS: POTASSIUM 6.8 mmol/L (3.5-5.1)
[2018-08-20] MEDS ORDERED: NOREPINEPHRINE 4 MG/4 ML AMPUL IV ONE (04:18)
--- NOTE | 2018-08-20 04:20 | NUR ---
ICU/NUCLEAR PLANT OPERATOR PT'S SBP WAS LOW AT 60'S FOR A FEW CYCLES, LEVO WAS ORDER WAS PLACED BY GAMBRELER AND STARTED. WILL CONTINUE TO MONITOR THIS AND INCREASE ACCORDINGLY BY 2 MCG EVERY 5 MINUTES.
[2018-08-20 04:23] LABS: HDL CHOLESTEROL 36 mg/dL (40-60); LDL 12 mg/dL (0-99); TRIGLYCERIDES 59 mg/dL (30-150)
[2018-08-20 04:25] LABS: CHOLESTEROL < 50 mg/dL (<200)
--- NOTE | 2018-08-20 04:27 | NUR ---
ICU/MARKETING DATABASE ANALYST CALLED INVESTOR RELATIONS SPECIALIST LEASING ASSOCIATE TO GET ORDER FOR LEVO DUE TO LOW BP. PHARMACY CALLED TO VERIFY WHICH WAS DONE. ALSO AT THIS TIME CRITICAL LAB VALUES WERE CALLED IN , TROP 6.979, LACTIC ACID 9.2, POTASSIUM 6.8. ALONG WITH CRITICAL ABG.
[2018-08-20] MEDS ORDERED: NOREPINEPHRINE 8 MG in IV D5W 500 ML IV PRN ×2 (04:30→05:00)
[2018-08-20] MEDS ORDERED: SODIUM POLYSTYRENE SULFONATE 15 G/60 ML BOTTLE RC ONE (04:30)
--- NOTE | 2018-08-20 05:00 | NUR ---
ICU/LOGISTICS TECHNICIAN HEPARIN IS OFF, DUE TO APTT IS GREATER THAN 170. WILL RESTART AT 0600 WITH NEXT APTT AT NOON. CHARGE NURSE AWARE
[2018-08-20] MEDS: methylPREDNISolone SOD SUCC 125 MG/2ML VIAL IV SCH (05:05)
[2018-08-20] MEDS: PIPERACILLIN /TAZOBACTAM 2.25 G in IV D5W 50 ML IV SCH ×3 (05:05→21:41)
[2018-08-20] MEDS ORDERED: SODIUM POLYSTYRENE SULFONATE 15 G/60 ML BOTTLE ONE (05:06)
--- NOTE | 2018-08-20 05:15 | NUR ---
ICU/FACILITIES SUPERVISOR CALLED AG SERVICE MANAGER ABOUT THE ABG POST 1 HOUR, GAVE ORDER FOR 1 AMP BICARB IVP X 1 NOW. NOTIFIED CHARGE NURSE ABOUT THIS THE ORDER WAS VERIFIED AND CARRIED OUT. WELL OBTAINED AN ORDER FOR N-G TUBE WHICH WAS AGAIN CARRIED OUT. WILL CONTINUE TO MONITOR THIS PT.
--- NOTE | 2018-08-20 05:30 | NUR ---
ICU/FURNACE HELPER KAYEXALATE 30ML GIVEN FOR THE POTASSIUM OF 6.8.WILL MONITOR AM LABS
[2018-08-20] MEDS ORDERED: SODIUM BICARBONATE SYR 50 MEQ/50 ML DISP.SYRIN ONE (05:47)
[2018-08-20] MEDS ORDERED: Sodium Bicarbonate 50 MEQ/50 ML VIAL IV ONE (06:00)
--- NOTE | 2018-08-20 06:00 | NUR ---
ICU/INTERNAL RECRUITER HEPARIN RESTARTED AT 350 UNITS FROM 330 UNITS THIS IS PER CHARGE NURSE ANTHONY FRANCOIS. NEXT APTT IS AT NOON.
--- NOTE | 2018-08-20 07:32 | NUR ---
ICU/MANAGER NURSING HOME ETT TUBE IS BEING ADVANCED TO 3CM FROM 21 CM TO NOW 24CM WHICH WAS THEN PASSED ON TO DAY SHIFT NURSE.
--- NOTE | 2018-08-20 07:40 | NUR ---
SOFTWARE BUSINESS ANALYST: pt. is intubated, no sedation, semicomatose, able to open eyes with deep pain stimuli, no any contact reaction, very sluggish pupils reaction, trace arms activity with pain stimuli, no cough reflex, on fiO2 100%, O2sat.: applied different sensors, now 92-93% on hand, ETT is adjusted into for 3 cm, Levophed gtt 16mcg/m, SBP around 80 now, will increase, afib around 90 HR, Heparin gtt 350units/h, IVF NS 125ml/h
--- NOTE | 2018-08-20 08:00 | NUR ---
BRIDGE IRONWORKER HELPER: is in room, updated with pt.current condition, coded episode, neurostatus, VS, Afib HR 79-100, Levophed gtt, Heparin gtt, I/O, IVF, ABG (now pH 7.07, pCO2 42, pO2 229, bicarb 12), labs, ordered: increase Tv to 550, titrate FiO2, stop Heparin gtt, repeat chem.lab, titrate Levophed gtt, see new orders
[2018-08-20 08:14] LABS: ABG BASE EXCESS -17.4 mmol/L; ABG OXYGEN SATURATION 98.9 % (92.0-98.5); ABG PCO2 42.3 mmHg (35.0-45.0); ABG PH 7.072 (7.350-7.450); ABG PO2 229.6 mmHg (75.0-100.0); AaDO2 441.1 mmHg; COHb 0.7 % (0.5-1.5); MetHb 0.7 % (0.0-1.5); O2Hb 97.5 % (94.0-97.0); PEEP,BG 5 cm H2O; SITE, ABG Left Brachial; VENT MODE, BG AC 16 500 100% +5; VT, ABG 500 mL
[2018-08-20] MEDS ORDERED: DIGOXIN 0.125 MG TABLET PO SCH (09:00)
[2018-08-20] MEDS ORDERED: ASPIRIN 325 MG TABLET PO SCH (09:00)
[2018-08-20] MEDS ORDERED: CHOLECALCIFEROL 1,000 UNIT TABLET (VIT D3) PO SCH (09:00)
[2018-08-20] MEDS ORDERED: FLUTICASONE/VILANTEROL 1 EACH BLST.W.DEV IH SCH (09:00)
--- NOTE | 2018-08-20 10:00 | NUR ---
WINDER OPERATOR: is in room, updated with coded episode last night, ABG, VS, Levophed gtt rate, I/O, IVF, O2sat., labs, meds, see new orders
[2018-08-20] MEDS: IV NS 0.9% 1,000 ML IV PRN (10:05)
[2018-08-20 10:06] LABS: ALANINE AMINOTRANSFERASE 157 U/L (12-78); ALBUMIN 1.8 g/dL (3.4-5.0); ALKALINE PHOSPHATASE 118 U/L (46-116); ASPARTATE AMINOTRANSFERASE 368 U/L (15-37); BILIRUBIN,TOTAL 1.5 mg/dL (0.2-1.0); CALCIUM, SERUM 7.4 mg/dL (8.5-10.1); CARBON DIOXIDE 15 mmol/L (21-32); CHLORIDE 107 mmol/L (98-107); CREATININE 2.8 mg/dL (0.6-1.3); GLUCOSE 93 mg/dL (74-106); MAGNESIUM 2.4 mg/dL (1.8-2.4); SODIUM SERUM 140 mmol/L (136-145); TOTAL PROTEIN, SERUM 5.8 g/dL (6.4-8.2); UREA NITROGEN, BLOOD 43 mg/dL (7-18)
[2018-08-20] MEDS: CLOTRIMAZOLE 1% 15 GM TUBE TP SCH ×2 (10:19→17:13)
[2018-08-20 10:31] LABS: PHOSPHORUS 9.5 mg/dL (2.5-4.9); POTASSIUM 6.2 mmol/L (3.5-5.1)
--- NOTE | 2018-08-20 10:45 | NUR ---
HEALTH CARE COORDINATOR: is in room, notified re pt.current condition, VS, I/O, Levophed gtt 34 mcg/m now, IVF, ABG, K+ 6.2 now, phos 9.5, labs, orders, neurostatus, ordered: NS 1000ml bolus now, titrate Levophed gtt, Sodium acetate IVF after bolus, see new orders
[2018-08-20] MEDS ORDERED: IV NS 0.9% 1,000 ML IV PRN (10:50)
--- NOTE | 2018-08-20 11:42 | NUR ---
FLATBED DRIVER: unable to monitor O2sat. correctly, reapplied new sensors, changed nubia, O2sat. 92-96% now. Ponce, charge nurse spoke with granddaughter(ICU nurse) with detailed report, got consent for PICC placement
--- NOTE | 2018-08-20 11:45 | NUR ---
RT NOTE PT MECHANICALLY VENTILATED VIA 7.0 ETT 24 CM AT LIP. CUFF INFLATED. ETT SECURE. VENTILATOR SETTINGS PRESCRIBED. ALARMS SET PER PROTOCOL AND AUDIBLE. VENT PLUGGED IN TO RED OUTLET. AMBU BAG AT BED SIDE. NO DISTRESS NOTED AT MOMENT. Addendum: 08/20/18 at 1147 by EULOGIO LEWIS RT Amended: Links added.
--- NOTE | 2018-08-20 12:00 | NUR ---
SENIOR TECHNICAL BUSINESS ANALYST: is in room, updated with coded episode, ABG, vent.setting/said: continue same AC 16, Tv 550, FiO2 50% now, peep5, no cough reflex, neuro status, VS, Levophed gtt, IVF sodium acetate IVF new order, I/O, K+6.2, said: repeat lab in 2-3 hrs after sodium acetate started
[2018-08-20] MEDS: HYDROCORTISONE SOD SUCCINATE 100 MG/2 ML VIAL IV SCH ×2 (12:08→17:13)
[2018-08-20 12:50] LABS: APPEARANCE,URINE TURBID (CLEAR); BILIRUBIN,URINE NEGATIVE (NEGATIVE); BLOOD, URINE 1+ Ery/uL (NEGATIVE); COLOR,URINE YELLOW (YELLOW); KETONES,URINE NEGATIVE (NEGATIVE); LEUKOCYTE ESTERASE ,URINE NEGATIVE (NEGATIVE); NITRITE, URINE NEGATIVE (NEGATIVE); PROTEIN,URINE NEGATIVE (NEGATIVE); UGLUCOSE NEGATIVE (NEGATIVE); UROBILINOGEN,URINE 0.2 EU/dL (0.2)
[2018-08-20 12:58] LABS: CREATININE, URINE 108.3 MG/DL (30.0-125.0); URINE TOTAL PROTEIN 42.9 mg/dL (0-11.9)
[2018-08-20] MEDS ORDERED: VANCOMYCIN 500 MG in IV D5W 100 ML IV SCH (13:00)
[2018-08-20 13:10] LABS: BACTERIA,URINE Few /HPF (None Seen); WBC,URINE 0-2 /HPF (0-3); YEAST,URINE Few /HPF (None Seen)
[2018-08-20 13:11] LABS: CALCIUM OXALATE CRYSTALS,UR Few /HPF (None Seen); MUCUS,URINE Few /LPF (None Seen); SQUAMOUS EPITHELIAL CELL,UR 0-2 /HPF (None Seen); URINE AMORPHOUS URATE Few /HPF (None Seen)
[2018-08-20] MEDS: Sodium Acetate 150 MEQ in IV D5W 1,000 ML IV PRN ×3 (13:17→21:41)
[2018-08-20 13:43] LABS: EOSINOPHIL,URINE None Seen
[2018-08-20] MEDS ORDERED: EPINEPHRINE (1:10,000) SYRINGE 1 MG/10 ML DISP.SYRIN IVP ONE (14:32)
[2018-08-20] MEDS: NOREPINEPHRINE 16 MG in IV D5W 500 ML IV PRN ×2 (15:19→21:57)
--- NOTE | 2018-08-20 16:00 | NUR ---
CHARGER OPERATOR: Levophed gtt 38mcg/m now, BP 91/56, HR 85, called /ordered Messi-Synephrine gtt PRN, pt. and granddaughter are in room, updated with all above, orders, VS, IVF, I/O, O2sat., meds, labs, POC, got MDs information
[2018-08-20] MEDS ORDERED: PHENYLEPHRINE 80 MG in IV D5W 250 ML IV PRN (16:11)
--- NOTE | 2018-08-20 16:18 | NUR ---
STOGY MAKER: pt. spoke with charge nurse too, changed code status for DNR, will be updated too
[2018-08-20 16:23] LABS: CALCIUM, SERUM 6.5 mg/dL (8.5-10.1); CARBON DIOXIDE 13 mmol/L (21-32); CHLORIDE 104 mmol/L (98-107); CREATININE 3.2 mg/dL (0.6-1.3); GLUCOSE 98 mg/dL (74-106); SODIUM SERUM 138 mmol/L (136-145); UREA NITROGEN, BLOOD 40 mg/dL (7-18)
[2018-08-20 16:26] LABS: POTASSIUM 7.4 mmol/L (3.5-5.1)
--- NOTE | 2018-08-20 16:47 | NUR ---
DUAL RATE SUPERVISOR: is notified by charge nurse re pt.current VS, Levophed gtt max, K+ 7.4 now, IVF Sodium acetate 150 meq in D5w, DNR status now, said: notify
[2018-08-20] MEDS ORDERED: LACTOBACILLUS RHAMNOSUS GG 1 EACH CAP.SPRINK PO SCH (17:00)
--- NOTE | 2018-08-20 17:15 | NUR ---
DEPUTY SHERIFF CHIEF: is not answering, message was sent for to updated and for Messi gtt start
--- NOTE | 2018-08-20 17:30 | NUR ---
DIGITAL CAMPAIGN MANAGER: called back, updated with all above, ok to start Messi gtt, call for re critical e-lytes
--- NOTE | 2018-08-20 17:39 | NUR ---
GLUE SPRAYER: called back, updated with K+ 7.4, chem7, IVF, DNR, ordered Ca Chl 2gm IVP, Kayexelate 30gm vioa OGT
[2018-08-20] MEDS ORDERED: SODIUM POLYSTYRENE SULFONATE 15 G/60 ML BOTTLE PO ONE (18:00)
[2018-08-20] MEDS ORDERED: CALCIUM CHLORIDE 1,000 MG/10 ML DISP.SYRIN IV ONE (18:00)
--- NOTE | 2018-08-20 19:15 | NUR ---
ICU/BANK BOSS LEVO WAS DECREASED TO 32MCG FROM 34 DUE TO BLOOD PRESSURE OF 110/66. THIS WAS DONE BY CHARGE NURSE. WILL CONTINUE TO MONITOR TH8IS PT.
--- NOTE | 2018-08-20 20:35 | NUR ---
ICU/CRITICAL CARE PARAMEDIC LEVO WAS DECREASED TO 30MCG FROM 32 DUE TO BLOOD PRESSURE OF 106/64. THIS WAS DONE BY CHARGE NURSE. WILL CONTINUE TO MONITOR THIS PT AND HIS BLOOD PRESSURE.
--- NOTE | 2018-08-20 21:55 | NUR ---
ICU/LOG HAUL OPERATOR LEVO WAS INCREASED TO 32MCG FROM 30 DUE TO BLOOD PRESSURE OF 87/56. THIS WAS DONE BY CHARGE NURSE. WILL CONTINUE TO MONITOR THIS PT AND HIS BLOOD PRESSURE.
--- NOTE | 2018-08-20 22:35 | NUR ---
ICU/SALES CLERK LEVO WAS INCREASED TO 34MCG FROM 32 DUE TO BLOOD PRESSURE OF 64/22. THIS WAS DONE BY CHARGE NURSE. WILL CONTINUE TO MONITOR THIS PT AND HIS BLOOD PRESSURE.
--- NOTE | 2018-08-20 23:00 | NUR ---
ICU/TABLEAU DEVELOPER PT'S HEART RATE DECREASED TO 30'S THEN NO HEART RATE. AT THIS TIME BP ALSO DECREASED WELL, DESPITE THE INCREASE OF LEVO. PT AT 2251 , WHICH WAS PRONOUNCED BY THE CHARGE NURSE ED SHERI. FAMILY WAS CALLED AND NOTIFIED OF . DAUGHTER NEIL SAID SHE DID NOT HAVE A MORTUARY AND WOULD LIKE A CHILD THERAPIST TO CALL HER AND HELP TRANSPORT THE BODY TO [place] SINCE PT WAS A . AT THIS TIME. BODY WILL BE TAKEN DOWN TO [facility] UNTIL ARRANGEMENTS ARE MADE.
--- NOTE | 2018-08-20 23:45 | NUR ---
ICU/DIRECTOR SUPPLY CHAIN [employer] [facility] WAS CALLED AND CASE GIVEN [id number]. ANIMAL HANDLER WAS CALLED SAID THAT THIS IS NOT A ANIMAL HANDLER CASE, BODY WAS RELEASED.
[2018-08-21] MEDS ORDERED: LEVOFLOXACIN 750 MG /D5W 150ML 150 ML IV SCH (10:00)
== END 2018-08-20 22:51 | disposition expired | DRG 208 ==
LOC: ER 08:11 → ICU 11:28
PROVIDERS: ADMIT Family Medicine; ATTEND Family Medicine
PROC: 05H533Z Insertion of Infusion Device into Right Subclavian Vein, Percutaneous Approach (ICD-10-PCS; 2018-08-19)
PROC: 5A09357 Assistance with Respiratory Ventilation, Less than 24 Consecutive Hours, Continuous Positive Airway Pressure (ICD-10-PCS; 2018-08-19)
PROC: 5A1935Z Respiratory Ventilation, Less than 24 Consecutive Hours (ICD-10-PCS; principal; 2018-08-20)
PROC: 0BH17EZ Insertion of Endotracheal Airway into Trachea, Via Natural or Artificial Opening (ICD-10-PCS; 2018-08-20)
PROC: 5A12012 Performance of Cardiac Output, Single, Manual (ICD-10-PCS; 2018-08-20)
DX: J18.9 Pneumonia, unspecified organism (principal); N17.0 Acute kidney failure with tubular necrosis; I21.A1 Myocardial infarction type 2; J96.01 Acute respiratory failure with hypoxia; E44.0 Moderate protein-calorie malnutrition; J44.0 Chronic obstructive pulmonary disease with (acute) lower respiratory infection; E87.4 Mixed disorder of acid-base balance; E86.0 Dehydration; E78.5 Hyperlipidemia, unspecified; E88.09 Other disorders of plasma-protein metabolism, not elsewhere classified; G20 Parkinson's disease; I48.91 Unspecified atrial fibrillation; D72.829 Elevated white blood cell count, unspecified; J44.9 Chronic obstructive pulmonary disease, unspecified; J84.10 Pulmonary fibrosis, unspecified; Z85.46 Personal history of malignant neoplasm of prostate; Z85.038 Personal history of other malignant neoplasm of large intestine; Z87.891 Personal history of nicotine dependence; Z87.01 Personal history of pneumonia (recurrent); I10 Essential (primary) hypertension; I95.9 Hypotension, unspecified; E87.5 Hyperkalemia; Z79.82 Long term (current) use of aspirin; F03.90 Unspecified dementia, unspecified severity, without behavioral disturbance, psychotic disturbance, mood disturbance, and anxiety
CPT/HCPCS: 31720; 36415; 36569; 36600; 71045-TC; 76770-TC; 80048-TC; 80053-TC; 80061-TC; 80076-TC; 80162-TC; 80202-TC; 81000-TC; 82570-TC; 82803-TC; 82962-TC; 83605-TC; 83735-TC; 83880; 84100-TC; 84155-TC; 84300-TC; 84484-TC; 85025-TC; 85610-TC; 85730-TC; 87040-TC; 87070-TC; 87081-TC; 93307-TC; 94002-TC; A4216; A4349; C1751; G0378; J0171; J1644; J1720; J1940; J1956; J2370; J2543; J2930; J3370; J3490; J7030; J7060; J7070